=== PATIENT | male | born 1985 | race African-American/Black ===

== ENCOUNTER 2024-07-26 21:08 | Inpatient (IN) | payer OTHER, SELFPAY ==
[2024-07-26] VITALS (21 sets, daily range): BP systolic 175–231; BP diastolic 97–166
[2024-07-26 18:53] LABS: Glucose - Point of Care 123 mg/dl (70-99)
--- NOTE | 2024-07-26 19:05 | ED.GENMED ---
History of Present Illness
General
Chief Complaint: Overdose Unintentional
Time Seen by Provider: 07/26/24 19:05
History of Present Illness
History of Present Illness:
TIME OF INITIAL ENCOUNTER: 7 PM
HPI: The patient was picked up on a warrant in [place] and then being transferred to jail. On initial intake, the patient was found to be nodding off. He had decreased respiratory rate of around 10 and was given 0.5 mg of Narcan intranasally.
He had been vomiting and vomited in the police car on his way here. Upon arrival, he admits to using heroin yesterday or possibly this morning (more than 8 hours ago). Of note throughout the stay in the Emergency Department, the patient's mental
status worsened.
EXAM:
GENERAL: The patient is frequently retching/vomiting, hypertensive, ill-appearing
HEENT: Dry oral mucosa
CARDIOVASCULAR: No murmurs, tachycardic heart rate, regular rhythm, No chest wall tenderness
PULMONARY: No respiratory distress, breath sounds are clear and equal
ABDOMEN: Soft with no peritoneal signs, no tenderness
NEUROLOGIC: Moves all extremities equally, the patient is able to protect his airway and moves appropriately to vomit
PSYCHIATRIC: The patient appears obtunded
EXTREMITIES: Nontender, no edema
SKIN: Patient is profusely diaphoretic
NUMBER AND COMPLEXITY OF PROBLEMS ADDRESSED AT THE ENCOUNTER
� Chronic conditions affecting care: Unknown
� Acute Exacerbation and/or Progression of Chronic Illness: This is an acute problem
� Differential Diagnosis includes: Opiate withdrawal, delirium, electrolyte, dysrhythmia, JULIAN, polysubstance use
AMOUNT AND/OR COMPLEXITY OF DATA TO BE REVIEWED AND ANALYZED
� I performed an independent evaluation of and my interpretation is:
EKG: Sinus 55, LVH; of note patient did go into ventricular bigeminy while in the Emergency Department
CT:
X-rays: Chest x-ray initially showed endotracheal tube the need to be advanced�P chest x-ray improved
Laboratory Studies: White count 12.1, hemoglobin normal, potassium 3.1, magnesium normal, troponin less than 0.012, LFTs unremarkable, alcohol undetected
Other:
� Review of other/old records: No old records available for review
� Clinical information was obtained by an independent historian: EMS and [facility]
� Prescriptions/Medications Considered but not given:
� Further testing considered but not performed:
RISK OF COMPLICATIONS AND/OR MORBIDITY OR MORTALITY OF PATIENT MANAGEMENT
� Social determinants of health affecting care: Currently in police custody
� Discussion with other providers: Hospitalist, Dr. Chinchilla for admission
� Escalation of care including admission/observation vs risk of discharge considered: Although there was initial concern of opiate overdose initially, I suspect symptoms are more related to opiate withdrawal. His COWS score is
20. He was given multiple meds for symptomatic control. Poor IV access. With some difficulty (due to patient compliance), I placed femoral vein line in the right groin.
ANY OTHER UPDATES:
The patient had several episodes of vomiting but did not appear to aspirated any time. He was maintained in an upright position and he was able to position himself when he did vomit.
Throughout the stay in the Emergency Department, the patient continued to vomit. He became more encephalopathic. Strongly suspect this is related to drug use/drug withdrawal. The patient was given multiple meds for elevated COWS of 20. Decision
made to intubate the patient to protect airway and to help control the agitation. Central line also placed.
Phy Exam
Physical Exam
Physical Exam:
See HPI
Course
Orders/Labs/Results
Orders:
Orders
07/26/24 Breakfast
NPO
Allow oral meds: Yes
Allow clear liquids: Sips of Clears
NPO with Ice Chips: Yes
Comment: Allow meds and sips if patient alert to swallow
07/26/24 19:03
Electrocardiogram (*1) Urgent
Reason for Study: Other
Other Reason for Exam: Potential overdose
EKG- Treatment ONCE
07/26/24 19:06
Complete Blood Count/With Diff Urgent
07/26/24 19:12
0.9% Sodium Chloride 1000 ml [Nss] 1,000 ml IV BOLUS
Ondansetron Injectable [Zofran] 4 mg IV NOW STA
07/26/24 19:15
Clonidine [Catapres] 0.1 mg PO NOW STA
07/26/24 19:30
Alcohol Urgent
Comprehensive Metabolic Panel Urgent
Magnesium Urgent
Triglycerides Urgent
Comment: ADDON
Troponin I Urgent
07/26/24 20:03
Buprenorphine HCl [Belbuca] 300 mcg BUCCAL NOW STA
Diphenhydramine [Benadryl] 25 mg IV NOW STA
Haloperidol Lactate [Haldol] 5 mg IV NOW STA
07/26/24 20:09
Drug Screen, Urine [Urine Drug Abuse Screen] Urgent
07/26/24 20:10
Prochlorperazine [Compazine] 10 mg IV NOW STA
07/26/24 20:28
Magnesium Sulfate 1 G/D5w [Magnesium Sulfate] 1 gm in 100 ml IV NOW
Trimethobenzamide [Tigan] 200 mg IM NOW STA
07/26/24 20:29
Admit/Transfer Patient As Directed
Co-Sign Provider:
Level of Care: Inpatient admission
Assign to:: ICU
Physician / Group: Htay
Diagnosis: Opioid Withdrawal
Reason for Hospitalization: IVFs, Withdrawal management
Expected length of stay greater than two midnights?: Yes
ELOS- Estimated Length of Stay in days: 3
I certify the patient meets the requirements for IP care: Yes
07/26/24 20:32
Potassium Chloride [KCl] 40 meq 0.9% Sodium Chloride 250 ml [Nss] 250 ml IV NOW
PRN Pain Medication Management As Directed
May give lesser potent ordered pain med per pt: Yes
preference::
Protocol:: Medication orders for pain may be administered in a
manner that supports deferring to patient preference
when the pt is:
- Requesting an ordered lesser potent pain medication.
Least to most potent pain medications are defined
as: acetaminophen < NSAID < tramadol < opioids
(morphine, oxycodone, hydromorphone).
- Requesting a lesser dose of the same medication IF
ORDERED.
- Requesting a less intrusive route of administration
if both routes are prescribed by the provider (PO <
IV).
07/26/24 20:38
Code Status As Directed
Resuscitation Status: Full Code
07/26/24 20:46
PICC Line As Directed
07/26/24 21:25
Restraints - Violent As Directed
Restraint Type-: Locked-4 point/4 rails
Apply From (date): 07/26/24
Apply from (time): 20:59
Remove (date): 07/27/24
Remove (time): 00:59
07/26/24 22:00
Clonidine [Xvjaaiaj-Xct-1] 0.1 mg TRANSDERM Q7D
07/26/24 22:13
0.9% Sodium Chloride 1000 ml [Nss] 1,000 ml IV 80 mls/hr
0.9% Sodium Chloride [Nss (Preservative Free)] See Protocol IV PRN PRN
HydrALAZINE [Apresoline] 10 mg IV Q4HPRN PRN
Ketorolac [Toradol] 10 mg IV Q6HPRN PRN
07/26/24 22:13
1:1 Observation - Suicide/ Violent Behavior As Directed
Electrocardiogram (*1) Routine
Reason for Study: QTc Monitoring
Comment: if not already done in ED
Case Management Consult ONCE
Case Management Consult: Other
Comment: opioid withdrawal
Fentanyl, Urine Urgent
Activity As Directed
Activity Level: Bedrest
Capnography/ETCO2 As Directed
Clinical Opioid Withdrawal Scale (COWS) Q4
Frequency:: now, Q4 hours x 24 hours, then PRN based on symptoms
I&O [Intake/ Output] As Directed
Frequency: q12h
Pneumatic Compression Sleeves As Directed
Type: Knee high
Vital Signs As Directed
Frequency: Per unit guidelines
DX Deep Vein Thrombosis Video Routine
07/27/24 06:00
ECG [Electrocardiogram (*1)] IN AM
Reason for Study: QTc Monitoring
Basic Metabolic Panel IN AM
Complete Blood Count/No Diff IN AM
Ayhdd-Yues-Lqwdbca IN AM
Magnesium IN AM
Abnormal Lab Results
07/26/24 07/26/24 07/26/24
18:52 19:06 19:30
WBC 12.1 H 10^3/uL
(4.8-10.8)
Absolute Neuts (auto) 9.2 H 10^3/uL
(1.4-6.5)
Absolute Monos (auto) 0.7 H 10^3/uL
(0.1-0.6)
Neutrophils % 76.7 H %
(42.2-75.2)
Lymphocytes % 16.8 L %
(20.5-51.1)
Sodium 146 H mmol/L
(135-145)
Potassium 3.1 L mmol/L
(3.5-5.1)
Glucose 128 H mg/dl
(70-99)
Alkaline Phosphatase 133 H U/L
(38-126)
Total Protein 8.4 H g/dl
(6.3-8.2)
POC Glucose 123 H mg/dl
(70-99)
07/26/24 19:06
07/26/24 19:30
Vital Signs
Initial and Last Documented VS:
Initial Vital Signs
Temp Pulse Resp Pulse Ox
36.2 C 68 15 100
07/26/24 18:53 07/26/24 18:53 07/26/24 18:53 07/26/24 18:53
Last Documented Vital Signs
Temp Pulse Resp BP Pulse Ox
36.2 C 163 43 191/105 96
07/26/24 18:53 07/26/24 21:34 07/26/24 21:34 07/26/24 21:34 07/26/24 21:34
Procedures
Intubations
Procedure completed by: Nh, Dr. Barton
Method of Intubation: glidescope
Tube size (cm): 8.0
Placement confirmed by: CXR and capnography
Breath sounds after intubation: equal
Intubation complications: no complications
Additional information:
The initial chest x-ray shows slightly high endotracheal tube�this was advanced and repeat imaging is improved
Central Line
Right Femoral:
Anesthesia: 1% Lidocaine
Central line lumen: triple
Number of attempts: 1
Central line complications: none
Sterile dressing applied?: Yes
*Critical Care Note
Total Time (30-74mins, 75-104mins- exclusive of procedures): 60min
comment:
Patient intermittently screaming, cannot sit still, frequent reassessments, frequent vomiting, multiple meds attempted, frequent reassessments, multiple conversations with hospitalist
ED Attending Note
-
Portions of this chart may have been created with voice recognition software.� Occasional wrong word or��sound alike� substitutions may have occurred due to the inherent limitations of voice recognition software.
Discharge Plan
Departure
Patient Disposition: Admit
Date of Disposition: 07/26/24
Time of Disposition: 20:10
Presentation/result/management discussed w/ accepting MD/DO: Hospitalist
Discharge Problem:
Opiate withdrawal
Interventions
Interventions:
*Risk Screen - Suicide Last Done: 07/26/24 20:27
*General Assessment Last Done: 07/26/24 20:27
*Neglect/Abuse Screening Last Done: 07/26/24 20:27
*ED COVID-19 Vaccine History Last Done: 07/26/24 20:27
ED- Cardiac Assessment Last Done: 07/26/24 19:47
ED- Neurological Assessment Last Done: 07/26/24 19:47
ED-Psychological Assessment Last Done: 07/26/24 19:47
ED- Pulmonary Assessment Last Done: 07/26/24 21:38
[2024-07-26 19:11] LABS: % Basophils 0.4 % (0-2); % Eosinophils 0.2 % (0-6); % Immature Granulocytes 0.3 % (0-0.5); % Lymphocytes 16.8 % (20.5-51.1); % Monocytes 5.6 % (1.7-9.3); % Neutrophils 76.7 % (42.2-75.2); Absolute Basophils 0.1 10^3/uL (0-0.2); Absolute Monocytes 0.7 10^3/uL (0.1-0.6); Absolute Neutrophils 9.2 10^3/uL (1.4-6.5); Hematocrit 41.1 % (39.0-52.0); Hemoglobin 13.9 g/dL (13.0-18.0); Mean Corp Hgb Conc. 33.8 g/dL (33.0-37.0); Mean Corpuscular Hgb 28.9 pg (27.0-31.0); Mean Corpuscular Volume 85.4 fL (80.0-94.0); Nucleated Red Blood Cells % 0 % (-); Platelet Count 349 10^3/uL (130-400); Red Blood Cell Count 4.81 10^6/uL (4.70-6.10); Red Cell Dist. Width 13.2 % (11.5-14.5); White Blood Cell Count 12.1 10^3/uL (4.8-10.8)
[2024-07-26] MEDS: ZOFRAN 4 MG IV (19:23)
[2024-07-26] MEDS: NSS 1000 IV ×2 (19:24→23:37)
[2024-07-26 19:53] LABS: ALT (SGPT) 31 U/L (0-50); AST (SGOT) 37 U/L (17-59); Albumin 4.4 g/dl (3.5-5.0); Alkaline Phosphatase 133 U/L (38-126); Blood Urea Nitrogen 11 mg/dl (9-20); Carbon Dioxide 30 mmol/L (22-30); Chloride 104 mmol/L (98-107); Glucose 128 mg/dl (70-99); Potassium 3.1 mmol/L (3.5-5.1); Sodium 146 mmol/L (135-145); Total Bilirubin 0.7 mg/dl (0.2-1.3); Total Protein 8.4 g/dl (6.3-8.2); eGFR > 60.00
[2024-07-26 20:01] LABS: Troponin I < 0.012 ng/ml
[2024-07-26] MEDS: BENADRYL 25 MG IV (20:13)
--- NOTE | 2024-07-26 20:13 | HPS.HSE ---
Family Physician
-
Family Physician: Facility [facility]
Chief Complaint
-
Opioid Overdose / Withdrawal
History of Present Illness
Patient is a 38 y/o male who presents with opioid withdrawal. Patient was being transferred from the telecom manager's office to [facility] when he began 'nodding off' Patient admitted to the guard he took heroin. EMS was called and upon
arrival EMS found his respiratory rate to 7. He was given Narcan by EMS with improvement in respirations and he was brought to the emergency department for evaluation. Upon my evaluation patient opens his eyes to name, but is non-verbal. He is
very restless and has had many uncontrollable episodes of vomiting per staff.
Medical History
Past Medical History
Past Medical History: Reports Other (Unknown)
Past Surgical History: Reports Other (Unknown)
Social History
Unable to obtain full social history at this time due to: Acuity
Family History
Family History: Unable to Obtain
Allergies / Home Medications
Allergies reflects when Allergies were last updated in [employer].
Home Medications with original date entered in [employer]
Allergy/Medication List:
Allergies
Allergy/AdvReac Type Severity Reaction Status Date / Time
No Allergy Information Allergy Unverified 07/26/24 19:02
Available
Home Medications
Unobtainable 07/26/24
Medications on admission are unable to be verified or confirmed at this time.
If medication reconciliation has not been performed, why?: Unresponsive
Review of Systems
-
Unable to obtain full review of systems at this time due to: Acuity
Physical Exam
Vital Signs
Vital Signs
Temp Pulse Resp BP Pulse Ox
97.1 F 72 24 194/114 100
07/26/24 18:53 07/26/24 20:00 07/26/24 19:30 07/26/24 20:00 07/26/24 20:00
Physical Exam
General: Other (Restless, Diaphoretic; Appears Acute Ill)
HEENT: NormoCephalic, Atraumatic and Other (Mucous membranes are dry)
Respiratory: Clear, Non Labored Respirations and Decreased Breath Sounds
Cardiac: S1/S2, Irregular Rhythm ([place]) and Bradycardia
GI: Soft and Non Tender
Rectal: Deferred by Provider
Musculoskeletal: No Clubbing, No Cyanosis and No Edema
Skin: Warm
Neuro: Other (Unable to participate in full neurologic evaluation; Patient is restless and appears to move four extremities appropriately)
Psych: Calm
Laboratory Results
-
07/26/24 19:06
07/26/24 19:30
Laboratory Results
Total Bilirubin 0.7 mg/dl (0.2-1.3) 07/26/24 19:30
AST 37 U/L (17-59) 07/26/24 19:30
ALT 31 U/L (0-50) 07/26/24 19:30
Alkaline Phosphatase 133 U/L (38-126) H 07/26/24 19:30
Troponin I < 0.012 ng/ml 07/26/24 19:30
Data Reviewed
-
Lab Data: Labs Reviewed by me
Impression/Plan
-
Acute / Severe Opioid Withdrawal with Autonomic Hyperarousal Symptoms
Severe Encephalopathy with Delirium
Ventricular Bigeminy
Hypokalemia
-Admit to ICU
-Plan for micro-induction opioid protocol
-ED to place central line
-Low threshold for intubation for airway protection
-Restraints for violent behavior
-Replace electrolytes
DVT proph: SCDs
Code Status: Full Code
--- NOTE | 2024-07-26 20:19 | W.PN.UPDATE ---
Addendum entered and electronically signed by Savage Chinchilla MD 07/26/24 21:49:
ADDENDUM: failed attempted chemical restraints to stabilize Delirium. Thus sedated and intubated to protect AW.
Case dw ER Attd and ICU NAVAL ARCHITECT .
Original Note:
Update Note
Progress Note Update
Vital Signs
Temp Pulse Resp BP Pulse Ox
97.1 F 72 24 194/114 100
07/26/24 18:53 07/26/24 20:00 07/26/24 19:30 07/26/24 20:00 07/26/24 20:00
Labs
07/26/24 07/26/24
19:06 19:30
WBC 12.1 H
Sodium 146 H
Potassium 3.1 L
Creatinine 0.8
eGFR > 60.00
Glucose 128 H
Alkaline Phosphatase 133 H
Troponin I < 0.012
Total Protein 8.4 H
PE
Limited exam due to encephalopathic
Gen: In delirium, lethargic, restless , not cooperative
HEENT: atraumatic head
Neck: supple
Lungs:symmetric AE
Cor: hypertensive
Abdomen: soft , benign
TABLE SETTER: symmetric movements of
MS: 4 points rstraint for violent behavior
Psych:
UDS pending
EKG
SINUS TACHYCARDIA WITH 2ND DEGREE A-V BLOCK WITH 2:1 A-V CONDUCTION
INCOMPLETE RIGHT BUNDLE BRANCH BLOCK
MODERATE VOLTAGE CRITERIA FOR LVH, MAY BE NORMAL VARIANT ( Sokolow-Parish ,
Juan Carlos product )
ABNORMAL QRS-T ANGLE, CONSIDER PRIMARY T WAVE ABNORMALITY
ABNORMAL ECG
NO PREVIOUS ECGS AVAILABLE
ASSESSMENT & PLAN
Pending Rx reconciliation
Severe fulminant acute opiates withdrawal syndrome ( repeated vomiting)
Autonomic hyperarousal ( diaphoresis, hypertensive ) due to opiates WDS
Severe encephalopathy with acute behavioral dysfunction due to delirium - thus unable to corporate with any PO Meds
Ventricular bigemini and 2 to 1 AVB
Severe Hypokalemia due to vomiting
Hypernatremia due to FWD and dehydration
Limited peripheral access except foot line due to IVDA
Hi risk for aspiration, thus hi risk for intubation to protect AW
Hi risk for Seizures
- IV Haldol 4mg , IV Tigan
- urgent Rt femoral line requested to ER attd
- IV NS 80/H
- IV Mg 1 gm followed by IV KCL 40 [place] once Rt femoral line acces is established
- Micro induction Opiates WD set for significant WDS
- PRN IV Ativan for agitation
- 4 point leather restraints for violent behavior
- to have low threshold for sedation and intubation
- IF failed attempted to control delirium to consider sedation and intubation
Consults: Wholesale Account Manager, [facility] [employer]
Case Hospitalist dw ICU NAVAL ARCHITECT, ER attd
DVT Px: SCD
Full code
ICU
Total Critical Care Time__70___ minutes.
I was immediately available to the patient and staff. I personally examined, reviewed labs, diagnostic images/reports, interpretations, treatment plans, discussed patient care with other providers and family or caregivers (if patient is unable to
make decisions), entered orders as appropriate and documented the medical record.
[2024-07-26] MEDS: TIGAN 200 MG IM (20:46)
[2024-07-26] MEDS: MAGNESIUM SULFATE 100 IV (20:49)
[2024-07-26] MEDS: HALDOL 5 MG IV ×2 (20:54→21:12)
[2024-07-26] MEDS: COMPAZINE 10 MG IV (20:56)
[2024-07-26] MEDS: KCL 270 MEQ IV (21:10)
[2024-07-26] MEDS: ATIVAN 2 MG IV (21:11)
--- NOTE | 2024-07-26 21:30 | VATNOTE ---
IV ACCESS ESTABLISHED DOCUMENTED. PICC ORDER NOTED. PT IN ACTIVE OPIOID WITHDRAWAL. THRASHING AND UNCOOPERATIVE IN EFFORTS TO PROVIDE CARE. ACTIVE ON-GOING VOMITING. UNABLE TO INSERT PICC OR ML DUE TO THE PTS CURRENT CLINICAL SITUATION. ED MD TO
INSERT FEMORAL TLC.
[2024-07-26] MEDS: AMIDATE 20 MG IV (21:36)
[2024-07-26] MEDS: DIPRIVAN 100 IV (21:38)
[2024-07-26] MEDS: DIPRIVAN 50 MG IV (21:46)
[2024-07-26] MEDS: ANECTINE 100 MG IV (21:57)
[2024-07-26] MEDS: SUBLIMAZE 100 IV (22:00)
[2024-07-26] MEDS: SUBLIMAZE 75 MCG IV (22:03)
[2024-07-26 22:26] LABS: Triglycerides 62 mg/dl (10-149)
[2024-07-26 22:28] LABS: Alcohol None Detected
[2024-07-26] MEDS: SUBLIMAZE 100 MCG IV ×4 (22:46→23:09)
[2024-07-26] MEDS: VERSED 5 MG IV ×4 (22:47→23:13)
--- NOTE | 2024-07-26 23:00 | PTCARENOTE ---
Patient received from ED with security and wood gouger officers escorting patient. Patient agitated and uncooperative, unable to find commands. Pupils 2mm. 4 point locked restraints maintained. Thrashing in bed, attempting to sit up. Multiple doses
of sedation given to move patient from stretcher to the bed. Multiple staff members assisting with transfer. Sinus Tachycardia on monitor, with periods of ventricular bigeminy. Blood pressure as documented. No edema noted. #8 ETT at 23 at the
lip, vent settings of A/C 14 TV 500 FIO2 40% Peep 5, lungs coarse. patient vomiting large amounts. Abdomen soft, hypoactive bowel sounds. No open wounds noted. #20 g in right hand, #20 left foot flushed and patent. Right TLC with Propofol on
max dose, Fentanyl at 80 mcg/hr and K rider. Again multiple doses of sedation given in order to complete interventions. NG tube and guzman catheter placed after patient was more calm. Central line dressing changed. CHG bath given.
--- NOTE | 2024-07-26 23:28 | W.PN.UPDATE ---
Update Note
Progress Note Update
07/26/24
659- Patient attempting to sit up, moving severe agitated in 4 point locked restraints, vomiting around ETT and biting ETT. Vital signs: heart rate 140s and SBP 180s. Additional sedation ordered versed 5mg IV and fentanyl 100mcg. Patient currently
on propofol gtt maxed, and fentanyl gtt increased, additional boluses of versed and fentanyl given as well. Unasyn IV antibiotic ordered for possible aspiration pneumonia, patient has vomited multiple times despite antiemetics that have also been
administered IV. Additional sedation ordered: propofol, fentanyl, and Precedex gtts.
[2024-07-26] MEDS: APRESOLINE 10 MG IV (23:36)
[2024-07-26] MEDS: CATAPRES-TTS-1 0.1 MG TRANSDERM (23:36)
[2024-07-26] MEDS: ZYPREXA 10 MG IM (23:53)
[2024-07-26] MEDS: STERILE WATER FOR INJECTION 2.1 ML IM (23:54)
[2024-07-26] MEDS: PRECEDEX 100 IV (23:58)
[2024-07-27] VITALS (50 sets, daily range): BP systolic 103–188; BP diastolic 67–113; BMI 22.5
[2024-07-27] MEDS: DIPRIVAN 100 IV ×5 (00:03→14:43)
[2024-07-27] MEDS: UNASYN IV ×4 (00:49→17:26)
[2024-07-27] MEDS: CARDENE 200 IV ×4 (01:00→11:47)
--- NOTE | 2024-07-27 01:00 | PTCARENOTE ---
Patients blood pressure remains elevated, Cardene gtt added
[2024-07-27] MEDS: SUBLIMAZE 100 MCG IV ×5 (01:07→21:17)
[2024-07-27] MEDS: VERSED 5 MG IV (02:30)
[2024-07-27] MEDS: TRANDATE 10 MG IV ×2 (02:32→13:35)
--- NOTE | 2024-07-27 02:37 | PTCARENOTE ---
Patients heart rate in the 160s persistently, order received for labetalol.
[2024-07-27] MEDS: SUBLIMAZE 100 IV ×4 (03:13→19:44)
[2024-07-27 03:56] LABS: HCO3 29.9 mmol/L (21-28); O2 Saturation % 98.5 % (94-98); PCO2 44 mmHg (35-48); PO2 84 mmHg (83-108); pH 7.44 (7.35-7.45)
[2024-07-27 04:54] LABS: Hematocrit 39.9 % (39.0-52.0); Hemoglobin 13.3 g/dL (13.0-18.0); Mean Corp Hgb Conc. 33.3 g/dL (33.0-37.0); Mean Corpuscular Hgb 28.6 pg (27.0-31.0); Mean Corpuscular Volume 85.8 fL (80.0-94.0); Mean Platelet Volume 9.1 fL (7.4-10.4); Platelet Count 350 10^3/uL (130-400); Red Blood Cell Count 4.65 10^6/uL (4.70-6.10); Red Cell Dist. Width 13.4 % (11.5-14.5); White Blood Cell Count 21.2 10^3/uL (4.8-10.8)
[2024-07-27 05:07] LABS: APTT 26.2 Sec (23.4-35.0); INR 1.09; PT 14.6 Sec (11.4-14.6)
[2024-07-27 05:20] LABS: ALT (SGPT) 31 U/L (0-50); AST (SGOT) 36 U/L (17-59); Albumin 4.1 g/dl (3.5-5.0); Alkaline Phosphatase 115 U/L (38-126); Blood Urea Nitrogen 10 mg/dl (9-20); Carbon Dioxide 29 mmol/L (22-30); Chloride 108 mmol/L (98-107); Direct Bilirubin 0.1 mg/dl (0.0-0.4); Glucose 138 mg/dl (70-99); Lactic Acid 1.1 mmol/L (0.7-2.0); Magnesium 2.1 mg/dl (1.6-2.3); Potassium 3.6 mmol/L (3.5-5.1); Sodium 143 mmol/L (135-145); Total Bilirubin 0.6 mg/dl (0.2-1.3); Total Protein 7.5 g/dl (6.3-8.2); eGFR > 60.00
--- NOTE | 2024-07-27 05:22 | PTCARENOTE ---
Patient removed from 4 point locked restraints, placed in 4 point soft limb restraints . No other changes in assessment
[2024-07-27] MEDS: PRECEDEX 100 IV ×6 (05:28→23:26)
--- NOTE | 2024-07-27 07:54 | W.PN.HOSP.TC ---
Today's Communication/Plan
-
- UDS
- BCx
Assessment / Plan
Assessment / Plan
Assessment:
38yoM w/o significant pmh admitted for respiratory depression and somnolence. Pt admitted to railroad police officer that he used heroin within the previous 24h. Given 0.5 mg narcan intranasally en route to hospital. Pt intubated, became agitated overnight.
Pt on fentanyl gtt, propofol gtt, precedex gtt, and nicardipine gtt. Unasyn ordered for possible aspiration pneumonia.
Plan:
Acute opioid w/d
Opioid use disorder
Severe encephalopathy w delirium
- microinduction protocol
- UDS pending
- bcx x2 pending
Possible aspiration pneumonia
- CXR: No acute cardiopulmonary process
- unasyn
- aspiration precautions
Agitation
- restraints
- precedex ggt
Hypokalemia
- repleted
Ventricular bigeminy
- monitor
Vomiting
- prolonged QTc
- tigan
- PPI
Hypertension
- nicardipine gtt
Tachycardia
- lopressor as needed
Constipation ppx
- senokot, miralax
Diet: NPO
DVT ppx: lovenox, SCDs
Code status: FULL CODE
Anticipated Discharge: > 48 hours
Subjective/Interval History
-
Date of Service: July 27, 2024
Pt is a 38yoM w/o significant pmh admitted for respiratory depression and somnolence. Pt admitted to railroad police officer that he used heroin within the previous 24h. Given 0.5 mg narcan intranasally en route to hospital. Pt reportedly had uncontrollable
episodes of vomiting. Pt intubated in ED. Pt became agitated overnight, vomited around ET tube, bit ET tube. Pt tachycardic and hypertensive. Pt on fentanyl gtt, propofol gtt, precedex gtt, and nicardipine gtt. Unasyn ordered for possible aspiration
pneumonia.
Objective Data
-
Labs:
Laboratory Results
07/26/24 07/26/24 07/27/24
19:30 22:44 03:48
WBC
Hgb
Hct
Plt Count
PT
INR
APTT
HCO3 Cancelled 29.9 H
Sodium 146 H
Potassium 3.1 L
Chloride 104
Carbon Dioxide 30
BUN 11
Creatinine 0.8
Glucose 128 H
Calcium 10.0
Total Bilirubin 0.7
AST 37
ALT 31
Alkaline Phosphatase 133 H
07/27/24
04:37
WBC 21.2 H
Hgb 13.3
Hct 39.9
Plt Count 350
PT 14.6
INR 1.09
APTT 26.2
HCO3
Sodium 143
Potassium 3.6
Chloride 108 H
Carbon Dioxide 29
BUN 10
Creatinine 0.8
Glucose 138 H
Calcium 9.0
Total Bilirubin 0.6
AST 36
ALT 31
Alkaline Phosphatase 115
Vital Signs:
Vital Signs
Temp Pulse Resp BP Pulse Ox
99.0 F 139 16 154/84 99
07/27/24 07:38 07/27/24 05:30 07/27/24 05:30 07/27/24 05:30 07/27/24 05:30
I&O
07/26/24 07/27/24 07/28/24
06:59 06:59 06:59
Intake Total 1611.8 / 1796.1 184.3 / 184.3
Output Total 1725 / 1825 100 / 100
Balance -113.2 / -28.9 84.3 / 84.3
Review of Systems
-
Unable to obtain full review of systems at this time due to: Patient Intubation
Physical Exam
-
General: Well Developed, Well Nourished and Intubated
HEENT: Normocephalic and Atraumatic
Respiratory: Clear to Auscultation
Cardiac: Regular Rhythm and S1/S2
GI: Soft, Nontender, Nondistended and Normal Bowel Sounds
Musculoskeletal: No Clubbing, No Cyanosis and No Edema
Skin: Warm and Dry
Neuro: Sedated
[2024-07-27] MEDS: MIRALAX 17 GRAMS TUBE (08:04)
--- NOTE | 2024-07-27 08:09 | PTCARENOTE ---
assumed care of pt. approx 0700.
Remains in 4 point restraints, agitation remains despite sedation gtt.
Intubated, tolerating vent settings sp02 99-100. see flow sheets for settings/adjustments.
Sedation gtt as follows w. Diprivan/Dex, analgesic gtt Fentanyl.
On cardene gtt for BP control, Tachycardic remains in sustained 130s, Cardiology RADHA made aware awaiting orders.
--- NOTE | 2024-07-27 08:18 | CON.INTV ---
Consultation
Consultation Request
Date/Time Consultation Requested: 07/26/20242232
Date/Time Consultation Performed: 07/27/2024806
Requesting Provider: Elen Stevens PA-C
Performing Provider: Dr. Velazquez
Reason for Consultation: Heroin withdrawal
Medical History
-
Chief Complaint: Heroin overdose
History of Present Illness:
38-year-old male with past medical history at least significant for opioid use disorder (additional history unobtainable given patient's acute clinical status) who was transferred here from snf due to altered mental status and bradypnea after
patient admitted to using heroin. He had been arrested and was transferred to senior care from the customer advocate's office, and while at present he began 'nodding off' and became nauseous. He admitted to the guards that he took heroin. EMS called and when
they arrived his respiratory rate was 7. 0.5 mL of Narcan given by EMS with improved respiratory rate. In the ER he was opening his eyes to name but was otherwise nonverbal, restless with uncontrollable episodes of vomiting. He was given Ativan +
Haldol to try to calm down but he was non-directable and had to be intubated for airway protection. Central line inserted into femoral vein for IV access. Initial vitals in the ER showed he was afebrile to 97.1 �F, pulse rate 68, respiratory rate
15, BP 196/97 and saturating 100% on room air. Labs showed mild leukocytosis to 12.1, potassium 3.1, sodium 146, troponin negative at <0.012, alcohol level negative and POCT glucose 123. Initial CXR showed no acute disease of the chest. In the ER
patient was given 1 L NS 0.9%, and was admitted to the ICU with Sandblast Operator services consulted for additional management/recommendations. Once he was brought up to the ICU, he was started on fentanyl, Precedex and propofol. Sandblast Operator services
consulted for additional management/recommendations.
Patient seen and evaluated today at bedside. Police officers at bedside. Pt's VS currently show: Heart rate 127, saturating 100% and BP 142/83. Currently on AC/CMV at 14/500/5/40% with PIP 19 cmH2O, VTe 506 mL and breathing at 14 breaths/min.
Currently on Cardene drip at 10 mg/hr. Currently sedated on propofol at 50 mcg/kg/min, fentanyl at 200 mcg/hr and Precedex at 0.8 mcg/kg/hr. Agitated during nursing care. Nauseous with vomiting overnight but this morning his NGT shows biliary
output on low wall suction.
PMHx: Opioid use disorder; additional past medical history is unobtainable due to patient's acute clinical status
PSHx: Unobtainable due to patient's acute clinical status
Past Medical History
Past Medical History: Other (Above as per HPI)
Past Surgical History: Other (Above as per HPI)
Social History
Tobacco: Other (Unobtainable due to patient's acute clinical status)
Alcohol: Other (Unobtainable due to patient's acute clinical status)
Drug: Cocaine and Narcotics
Family History
Family History: Unable to Obtain (Due to patient's acute clinical status)
Allergies / Home Medications
Allergies
Allergy/AdvReac Type Severity Reaction Status Date / Time
No Allergy Information Allergy Unverified 07/26/24 19:02
Available
Home Medications
�Medication �Instructions �Recorded �Confirmed �Last Taken �Type
Unobtainable 07/26/24 07/26/24 Unknown History
Review of Systems
-
Unable to Obtain full review of systems at this time due to: Patient Intubation
Vitals / Labs / Diagnostic Testing
Vital Signs
Temp Pulse Resp BP Pulse Ox
99.0 F 129 24 138/86 100
07/27/24 07:38 07/27/24 10:00 07/27/24 10:00 07/27/24 10:00 07/27/24 10:00
Lab Data
07/27/24 04:37
07/27/24 04:37
Laboratory Results
07/26/24 07/27/24 07/27/24
22:44 03:48 04:37
PT 14.6
INR 1.09
APTT 26.2
pH Cancelled 7.44
pCO2 Cancelled 44
pO2 Cancelled 84
HCO3 Cancelled 29.9 H
O2 Delivery Level Cancelled
Diagnostic Testing:
Physical Exam
-
HEENT: Normocephalic and Anicteric
Cardiovascular: S1/S2, Peripheral Edema (negative) and Other (Tachycardic)
Respiratory: Wheeze (negative), Rhonchi (negative) and Other (Mechanical breath sounds heard bilaterally)
GI: Soft, Non Distended, Non Tender and Normal Bowel Sounds
Neurology: Tremors (negative) and Other (Sedated; pupils +1 mm bilaterally and sluggish)
Skin: Warm and Dry
General: Respiratory Distress (negative), Fever (negative), Chills (negative) and Sweats (positive)
Assessment
-
Assessment: 38-year-old male with past medical history at least significant for opioid use disorder (additional history unobtainable given patient's acute clinical status) who was transferred here from snf due to altered mental status and
bradypnea after patient admitted to using heroin. He had been arrested and was transferred to senior care from the customer advocate's office, and while at present he began 'nodding off' and became nauseous. He admitted to the guards that he took heroin. EMS
called and when they arrived his respiratory rate was 7. 0.5 mL of Narcan given by EMS with improved respiratory rate. In the ER he was opening his eyes to name but was otherwise nonverbal, restless with uncontrollable episodes of vomiting. He
was given Ativan + Haldol to try to calm down but he was non-directable and had to be intubated for airway protection. Central line inserted into femoral vein for IV access. Initial vitals in the ER showed he was afebrile to 97.1 �F, pulse rate
68, respiratory rate 15, BP 196/97 and saturating 100% on room air. Labs showed mild leukocytosis to 12.1, potassium 3.1, sodium 146, troponin negative at <0.012, alcohol level negative and POCT glucose 123. Initial CXR showed no acute disease of
the chest. In the ER patient was given 1 L NS 0.9%, and was admitted to the ICU with Sandblast Operator services consulted for additional management/recommendations. Once he was brought up to the ICU, he was started on fentanyl, Precedex and propofol.
Sandblast Operator services consulted for additional management/recommendations.
Impression:
#Opioid use disorder with initial overdose and acute encephalopathy with dyspnea requiring mechanical ventilation (intubated in the ER on 07/26/2024)
#Heroin withdrawal (fentanyl, xylazine + medetomidine) with nausea/vomiting, agitation, hypertension, tachycardia and sweating
#Hypertensive crisis requiring Cardene drip (hypertension likely due to withdrawal of adulterants in fentanyl)
#Leukocytosis
#Polysubstance abuse with UDS positive for amphetamines, methamphetamines, and cocaine
Plan:
- Patient initially presented to present with signs of opioid overdose, however now that he is here in the ICU he is exhibiting signs of fentanyl withdrawal in addition to withdrawal of xylazine + medetomidine
- Continue with fentanyl drip + Precedex drip
- Low threshold to start ketamine as he remains tachycardic and hypertensive despite being on fentanyl, Precedex and propofol drips
- Also on Cardene drip given his significant hypertension; wean down Cardene as tolerated with goal SBP 150mmHg
- Continue with clonidine, and prn Tigan + Toradol
- Start scheduled oxycodone as this will assist with reducing his withdrawal symptoms
- Given his nausea assess intractable vomiting, continue with pantoprazole 40 mg IV daily
- Antiemetics as needed; monitor QTc with goal <500ms
- Patient was intubated for airway protection
- Continue with mechanical ventilation with daily SAT/SBT if clinically appropriate
- Maintain plateau pressure <30 and titrate FiO2 + PEEP to keep SpO2 >90-94%
- Continue aspiration precautions; keep HOB >30-45�
- prn nebulized bronchodilators - not currently bronchospastic
- Oropharyngeal + deep ETT suctioning with subglottic as needed
- Daily CXR + blood gas
- Daily vent adjustments as needed based on blood gas and SaO2
- Low level of sedation with goal RASS as 0 to -2
- Keep pt restrained given risk of pt removing critical life saving interventions (i.e. ETT)
- Given his intractable vomiting with concern for aspiration, continue with Unasyn
- Follow-up blood cultures x2 collected today (07/27)
- Check a sputum culture from ETT
- CXR does not show any obvious consolidation although there is focal patchy opacities in the right upper lobe, likely due to aspiration pneumonia/pneumonitis
- Maintain MAP>65
- Replete electrolytes with K>4, Mg>2
- Maintain euglycemia with goal BG 140-180; check A1C
- Trend H/H and transfuse if needed to keep Hb>7g/dL; keep plt>20k, unless there is concern for bleeding then keep plt>50k
- Early nutrition � clamp NGT now and if patient has no nausea/vomiting or abdominal distention over the next 4-6 hours then will start tube feeds at that time
- DVT ppx: Start LMWH
Continue ICU level of care for this critically ill patient
Critical care statement: A total of 38 minutes of critical care time was provided for this patient today. This includes management of unstable vital signs, evaluation of the patient at bedside, reviewing the patient's pertinent medical records
including radiographs, microbiology, laboratory evaluations, and discussion with primary team, consultants, pharmacy, nutrition, physical therapy, case management, charge nurse, critical care nursing, and respiratory therapy.
[2024-07-27] MEDS: NSS 1000 IV ×2 (10:00→21:56)
--- NOTE | 2024-07-27 10:48 | PTCARENOTE ---
ROUND NOTES
Increase DEX gtt due to potential w.d of dex laced narcotics, elevated HR.
Clamp NG tube, see pt. tolerance, start PO meds potential Initiation of TF later today.
Leave intubated.
Will keep 3L Fem line, waiting for cultures to confirm no growth trending fevers/WBC prior to placing chcf PICC per subway car repairer.
--- NOTE | 2024-07-27 10:55 | CON.CAR ---
Addendum entered and electronically signed by Zaria Rocha DO 07/27/24 19:08:
I saw and examined the patient.
The Wind Turbine Performance Engineer's note was reviewed and I agree with the note.
Comment: Patient was seen and examined; case discussed with commercial fishing vessel operator. Patient was intubated and sedated in handcuffs; police officers present at the time of exam. Patient is a 38-year-old gentleman with a history of polysubstance abuse including
opioid use disorder admitting to using heroin arrested last night but admitted to [facility] after intractable vomiting and decreased mental/respiratory status. He was given Narcan by EMS with improved respiratory rate. In the ER he became
agitated requiring Ativan and Haldol ultimately intubated for airway protection. He is currently intubated and sedated. Initial vitals in the emergency room found blood pressure 196/97, pulse 68, 100% on room air. Leukocytosis 12.1, potassium
3.1, sodium 146, troponin negative at less than 0.012. Lab work this morning with white blood cell count 21.2, potassium 3.6, BUN/creatinine 10/0.8. Chest x-ray showed no acute disease of the chest. Sinus tachycardia and ventricular bigeminy
noted on admission. Initial EKG personally reviewed showed sinus bradycardia with incomplete right bundle branch block and LVH with prominent U waves. Initial QT interval 365 ms. Second EKG shows sinus tachycardia with T wave abnormality in the
inferior leads and long QT of 555 ms. Subsequent UDS positive for methamphetamines/amphetamines and cocaine. Alcohol not detected. He is currently on fentanyl, Precedex and propofol drips. Cardiology consulted for review of rhythm.
GEN: Intubated and sedated in 4 point restraints And handcuffs
HEENT: OG tube with coffee-ground emesis
LUNGS: Limited exam clear anterolaterally
CV: Regular, tachycardic. Positive S1-S2. 2 out of 6 systolic murmur
ABD:Nondistended. Positive bowel sound
EXT: No edema B/L. 2+ radial and PT pulses B/L
NEURO: Sedated
Plan:
Polysubstance abuse with heroin, cocaine, amphetamines and methamphetamines exhibiting signs of withdrawal intubated for airway protection
- Management per commercial fishing vessel operator
- Monitor QT interval on telemetry and serial EKGs
-Hypertensive urgency on admission now on a Cardene drip;
- Blood pressures better controlled, wean IV Cardene as able.
- Possible underlying hypertension
- Troponin undetectable
- Not prohibitive to use beta-renato such as labetalol.
Sinus tachycardia, reactive secondary to above
- Ventricular ectopy has improved but will continue to monitor on telemetry
- Keep K greater than 4, mag greater than 2
-Will monitor for now on telemetry; use of beta-renato such as labetalol not prohibitive
Systolic murmur�2D echocardiogram ordered to evaluate for LV gradients and valvular pathology
Intractable vomiting in the setting of withdrawal now with coffee-ground emesis following NG tube placement
-PPI
-Monitor H&H
Leukocytosis with probable aspiration
- Empiric antibiotics per commercial fishing vessel operator
Will follow with you
Original Note:
Consultation
Consultation Request
Date/Time Consultation Requested: 07/26/24 at 2234
Date/Time Consultation Performed: 07/27/24 at 0735
Requesting Provider: Dr. Clemente Charlton
Performing Provider: Dr. Rocha
Reason for Consultation: ventricular bigeminy, sinus tachycardia
Medical History
-
History of Present Illness:
Patient came to the ER last night with vomiting and decreased level of consciousness, patient admitted with suspected opiate withdrawal and cardiology is consulted for sinus tachycardia and ventricular bigeminy. All available records reviewed,
patient was arrested and was being brought to [facility] last night and vomited in the police vehicle and then during his intake at the facility he was falling asleep and was increasingly less responsive to questions. RR was low and EMS was call and
patient was given Narcan because there was concern for possible heroin overdose. EMS report says that when they arrived the patient was able to stand up and then sit on the stretcher. Pupils were pinpoint and reactive. Patient told EMS that he has a
h/o HTN. EMS report says track velasco on both arms. EMS brought patient to [facility] ER and a left foot IV site placed and then right femoral vein IV placed. Patient vomited again in the ER and ER reports increasing sign of encephalopathy so patient was
intubated in the ER for airway protection. Patient noted to have ventricular bigeminy on tele, unclear if he was symptomatic with this. Patient then noted to have increasing sinus tachycardia that responded to labetalol 10 mg IV x1 at about 0230
this morning. No toxicology screen.
PMH:
HTN
Past Medical History
Past Medical History: Other (unknown)
Past Surgical History: Other (unknown)
Social History
Tobacco: Other (unknown)
Alcohol: Other (unknown)
Drug: Other (reportedly using heroin, but unknown)
Family History
Family History: Unable to Obtain
Allergies / Home Medications
Allergy/AdvReac Type Severity Reaction Status Date / Time
No Allergy Information Allergy Unverified 07/26/24 19:02
Available
�Medication �Instructions �Recorded �Confirmed �Type
Unobtainable 07/26/24 07/26/24 History
Review of Systems
-
History Source: Transfer Record
All other systems: Negative unless noted
Physical Exam
Vital Signs
Temp Pulse Resp BP Pulse Ox
99.0 F 129 24 138/86 100
07/27/24 07:38 07/27/24 10:00 07/27/24 10:00 07/27/24 10:00 07/27/24 10:00
GEN: Intubated and sedated in 4 point restraints.
HEENT: MMM
LUNGS: Intubated and on the ventilator. Clear anterolaterally without wheeze
CV: Sinus tachycardia on tele. Rapid and reg, S1/S2, difficult to appreciate murmur due to rapid HR
ABD: ND
EXT: No edema B/L. 2+ radial and PT pulses B/L
NEURO: Sedated
SKIN: No rash
Lab Results
07/27/24 04:37
07/27/24 04:37
Troponin I < 0.012 ng/ml 07/26/24 19:30
Impression / Plan
-
PCP: Unknown
Card: Unknown
Impression:
Admitted with concern for withdrawal and change in mental status 07/26/24
Opioid withdrawal, h/o IVDA
toxicology screen pending, but patient told officers that he had used heroin more than 8 hours prior to admission
TME
Sinus tachycardia
Ventricular bigeminy
Vomiting prior to admission
Hypokalemia
h/o HTN
Echo 07/27/24: Study pending
Plan:
-Patient came to the ER last night with vomiting and decreased level of consciousness, patient admitted with suspected opiate withdrawal and cardiology is consulted for sinus tachycardia and ventricular bigeminy. All available records reviewed,
patient was arrested and was being brought to [facility] last night and vomited in the police vehicle and then during his intake at the facility he was falling asleep and was increasingly less responsive to questions. RR was low and EMS was call and
patient was given Narcan because there was concern for possible heroin overdose. EMS report says that when they arrived the patient was able to stand up and then sit on the stretcher. Pupils were pinpoint and reactive. Patient told EMS that he has a
h/o HTN. EMS report says track velasco on both arms. EMS brought patient to [facility] ER and a left foot IV site placed and then right femoral vein IV placed. Patient vomited again in the ER and ER reports increasing sign of encephalopathy so patient was
intubated in the ER for airway protection. Patient noted to have ventricular bigeminy on tele, unclear if he was symptomatic with this. Patient then noted to have increasing sinus tachycardia that responded to labetalol 10 mg IV x1 at about 0230
this morning. No toxicology screen.
-ECG reviewed by me sinus bradycardia and then sinus tachycardia with short LA.
-Tele reviewed by me and remains in sinus tachycardia. Earlier tele also shows ventricular bigeminy.
-Sinus tachycardia likely mediated by withdrawal and patient's young age in the setting of critical illness. Options for management include treating the underlying process or possibly adding labetalol 200 mg tube BID. Will defer labetalol for now
and focus on treating the underlying withdrawal.
-Check echo, ordered by me
-Repeat ECG, ordered by me
-[facility] commercial fishing vessel operator team
-For ventricular bigeminy, will continue to supplement potassium. Potassium was 3.1 on admission and is up to 3.6 now. Patient given K rider 40 meq in the ER last night. Will give additional KCl
-Magnesium 2.1 on my review of labs.
-Patient told paramedics that he has a h/o HTN, but was not taking meds prior to admission. Cardene gtt running at 10 plus clonidine 0.2 mg tube q 6 hours
--- NOTE | 2024-07-27 11:36 | CM ---
Unable to speak with patient. Intubated, Propofol, IV Fentanyl, IV/AB. Information obtained from 2 officers in room from [employer]. Patient was being transferred to [facility] when he began nodding in patrol car. Officers
notified [facility] officials and they refused admission to [facility] and recommended ER visit. Patient admitted to using heroin. Ultimately the discharge plan is to go to [facility] when medically stable.
[2024-07-27] MEDS: NSS (PRESERVATIVE FREE) 10 ML IV (11:44)
[2024-07-27] MEDS: PROTONIX IV 40 MG IV (11:46)
[2024-07-27 11:53] LABS: Amphetamines Positive (Negative); Barbiturates Negative (Negative); Benzodiazepines Positive (Negative); Buprenorphine Negative (Negative); Cocaine Positive (Negative); Marijuana Negative (Negative); Methadone Negative (Negative); Methamphetamines Positive (Negative); Opiates Negative (Negative); Phencyclidine Negative (Negative); Tricyclic Antidepressants Negative (Negative)
[2024-07-27] MEDS: ROXICODONE 20 MG TUBE ×2 (11:58→17:26)
[2024-07-27] MEDS: CATAPRES 0.2 MG TUBE (11:58)
[2024-07-27] MEDS: SENOKOT-S 1 TABLET TUBE ×2 (11:58→21:56)
[2024-07-27 12:07] LABS: Fentanyl, Urine Positive (Negative)
[2024-07-27] MEDS: KCL ELIXIR 40 MEQ TUBE (12:59)
[2024-07-27] MEDS: CATAPRES 0.1 MG TUBE ×2 (13:36→17:46)
--- NOTE | 2024-07-27 13:38 | PTCARENOTE ---
Addendum entered by Neel Hopkins RN 07/27/24 14:30:
Pt. ketamine responsive, BP/HR lowered, circular gang saw operator bedside, starting ketamine gtt. Bridge off other sedation as tolerated.
Original Note:
Tachycardia persisting, circular gang saw operator notified, ketamine ordered, x1 labetalol.
[2024-07-27] MEDS: KETAMINE 52.3 MG IV (13:54)
--- NOTE | 2024-07-27 14:34 | PTCARENOTE ---
Cardene titrated off 1430.
[2024-07-27] MEDS: KETALAR 100 MG IV ×2 (15:04→22:11)
--- NOTE | 2024-07-27 16:03 | PTCARENOTE ---
Ketamine uptitrated, Propofol titrated off. sedation now only ketamine/dex/fentanyl.
Cardene remains off, pt remains tachycardic 110-120 range.
No further change in assessment.
[2024-07-27] MEDS: LOVENOX 40 MG SC (17:27)
--- NOTE | 2024-07-27 22:45 | PTCARENOTE ---
Addendum entered by Sparkle Waterman RN 07/28/24 00:42:
Correction to previous note, 2 Ham Marker are in the room, not corrections officers.
Original Note:
Assumed care of pt at 2130. Received pt intubated, #8.0 ETT 23cm at lip, AC 14/500/40/5, sedated on Fentanyl at 150mcg/hr, Precedex at 1.5mcg/kg/min, and Ketamine at 0.4mg/kg/hr. See med titration flowsheets on worklist for additional details. Pt
currently in 4pt soft restraints + shackled to bed, 2 corrections officers in the room. Physical assessment as documented in nursing shift assessment flowsheet. SR 80s on monitor. COWS protocol ongoing, most recent score was 1 d/t HR.
[2024-07-28] VITALS (28 sets, daily range): BP systolic 109–217; BP diastolic 75–131; BMI 22.7
[2024-07-28] MEDS: ROXICODONE 20 MG TUBE ×4 (00:02→17:45)
[2024-07-28] MEDS: CATAPRES 0.1 MG TUBE ×2 (00:02→06:03)
[2024-07-28] MEDS: UNASYN IV ×4 (00:02→17:53)
[2024-07-28] MEDS: SUBLIMAZE 100 MCG IV ×2 (00:11→04:40)
--- NOTE | 2024-07-28 00:37 | PTCARENOTE ---
No changes in assessment. Pt on same doses of sedation, is able to easily awaken to voice, nods/shakes head appropriately. Pt has been cooperative with care.
[2024-07-28] MEDS: PRECEDEX 100 IV ×6 (03:00→21:32)
[2024-07-28] MEDS: SUBLIMAZE 100 IV ×2 (03:01→09:33)
[2024-07-28 03:59] LABS: Hematocrit 37.7 % (39.0-52.0); Hemoglobin 12.3 g/dL (13.0-18.0); Mean Corp Hgb Conc. 32.6 g/dL (33.0-37.0); Mean Corpuscular Hgb 28.8 pg (27.0-31.0); Mean Corpuscular Volume 88.3 fL (80.0-94.0); Mean Platelet Volume 8.9 fL (7.4-10.4); Platelet Count 283 10^3/uL (130-400); Red Blood Cell Count 4.27 10^6/uL (4.70-6.10); Red Cell Dist. Width 13.9 % (11.5-14.5); White Blood Cell Count 13.5 10^3/uL (4.8-10.8)
--- NOTE | 2024-07-28 04:17 | PTCARENOTE ---
No change in assessment. Remains on same drips at same rates. SR 70s on monitor. 2 seafood technology specialist in room.
[2024-07-28 04:30] LABS: HCO3 27.3 mmol/L (21-28); PCO2 44 mmHg (35-48); PO2 142 mmHg (83-108)
[2024-07-28] MEDS: KETALAR 100 MG IV ×2 (04:34→10:40)
[2024-07-28 05:05] LABS: ALT (SGPT) 23 U/L (0-50); AST (SGOT) 27 U/L (17-59); Albumin 3.2 g/dl (3.5-5.0); Alkaline Phosphatase 98 U/L (38-126); Blood Urea Nitrogen 12 mg/dl (9-20); Calcium 8.3 mg/dl (8.4-10.2); Carbon Dioxide 28 mmol/L (22-30); Chloride 113 mmol/L (98-107); Estimated Creatinine Clearance 116 ml/min; Glucose 83 mg/dl (70-99); Magnesium 2.3 mg/dl (1.6-2.3); Phosphorus 3.5 mg/dl (2.5-4.5); Potassium 3.9 mmol/L (3.5-5.1); Sodium 145 mmol/L (135-145); Total Bilirubin 0.9 mg/dl (0.2-1.3); Total Protein 5.8 g/dl (6.3-8.2); eGFR > 60.00
[2024-07-28] MEDS: PROTONIX IV 40 MG IV (07:56)
[2024-07-28] MEDS: MIRALAX 17 GRAMS TUBE (07:56)
[2024-07-28] MEDS: SENOKOT-S 1 TABLET TUBE (07:56)
[2024-07-28] MEDS: NSS (PRESERVATIVE FREE) 10 ML IV (07:56)
--- NOTE | 2024-07-28 07:59 | W.PN.HOSP.TC ---
Today's Communication/Plan
-
.
Assessment / Plan
Assessment / Plan
Assessment:
38yoM w/o significant pmh admitted for respiratory depression and somnolence. Pt admitted to traffic police officer that he used heroin within the previous 24h. Given 0.5 mg narcan intranasally en route to hospital. Pt intubated, became agitated overnight.
Pt started on fentanyl gtt, propofol gtt, precedex gtt, and nicardipine gtt. Unasyn ordered for possible aspiration pneumonia.
Plan:
Polysubstance use disorder
Severe encephalopathy w delirium
- microinduction protocol
- UDS: amphetamines, methamphetamines
- bcx x2: no growth @ 24h
Hypertensive urgency
- cardene drip
- undetectable troponin
Possible aspiration pneumonia
- CXR: No acute cardiopulmonary process
- unasyn
- aspiration precautions
Systolic murmur
- echo: LVEF 65-70%, no significant valvular abnormalities, no pericardial effusion
Agitation
- restraints
- precedex ggt
Hypokalemia
- repleted
Ventricular bigeminy
- monitor
Vomiting
- prolonged QTc
- tigan
- PPI
Hypertension
- nicardipine gtt
Tachycardia
- lopressor as needed
Constipation ppx
- senokot, miralax
Diet: tube feeding
DVT ppx: lovenox, SCDs
Code status: FULL CODE
Anticipated Discharge: > 48 hours
Subjective/Interval History
-
Date of Service: July 28, 2024
Pt more alert and cooperative w care.
Objective Data
-
Labs:
Laboratory Results
07/28/24 07/28/24
03:52 04:22
WBC 13.5 H
Hgb 12.3 L
Hct 37.7 L
Plt Count 283
HCO3 27.3
Sodium 145
Potassium 3.9
Chloride 113 H
Carbon Dioxide 28
BUN 12
Creatinine 0.9
Glucose 83
Calcium 8.3 L
Total Bilirubin 0.9
AST 27
ALT 23
Alkaline Phosphatase 98
Vital Signs:
Vital Signs
Temp Pulse Resp BP Pulse Ox
97.9 F 74 15 119/82 99
07/28/24 07:42 07/28/24 06:03 07/28/24 06:00 07/28/24 06:03 07/28/24 06:00
I&O
07/27/24 07/28/24 07/29/24
06:59 06:59 06:59
Intake Total 1611.8 / 1796.1 4407.0 / 4407.0
Output Total 1725 / 1825 2705 / 2705
Balance -113.2 / -28.9 1702.0 / 1702.0
Review of Systems
-
Unable to obtain full review of systems at this time due to: Patient Intubation
Physical Exam
-
General: Well Developed, Well Nourished and Intubated
HEENT: Normocephalic, Atraumatic and Anicteric
Respiratory: Clear to Auscultation
Cardiac: Regular Rhythm and S1/S2
GI: Soft, Nontender, Nondistended and Normal Bowel Sounds
Musculoskeletal: No Clubbing, No Cyanosis and No Edema
Skin: Warm
--- NOTE | 2024-07-28 08:27 | W.PN.INTV ---
Today's Communication / Plan
Recommendations
Continue ketamine, Precedex + fentanyl, with goal to reduce all drips and perform SBT later this morning and hopefully extubate
Okay to extubate while on ketamine + Precedex and then can continue weaning from there
Continue with Unasyn
Continue oxycodone, clonidine and other prn supportive medications for opioid withdrawal (Tigan, Tylenol + Toradol)
Aspiration precautions
Continue restraints
Goal BP <140/90
Continue ICU level of care for this critically ill patient
Assessment
-
Assessment: 38-year-old male with past medical history at least significant for opioid use disorder (additional history unobtainable given patient's acute clinical status) who was transferred here from halfway due to altered mental status and
bradypnea after patient admitted to using heroin. He had been arrested and was transferred to care home from the budget director's office, and while at present he began 'nodding off' and became nauseous. He admitted to the guards that he took heroin. EMS
called and when they arrived his respiratory rate was 7. 0.5 mL of Narcan given by EMS with improved respiratory rate. In the ER he was opening his eyes to name but was otherwise nonverbal, restless with uncontrollable episodes of vomiting. He
was given Ativan + Haldol to try to calm down but he was non-directable and had to be intubated for airway protection. Central line inserted into femoral vein for IV access. Initial vitals in the ER showed he was afebrile to 97.1 �F, pulse rate
68, respiratory rate 15, BP 196/97 and saturating 100% on room air. Labs showed mild leukocytosis to 12.1, potassium 3.1, sodium 146, troponin negative at <0.012, alcohol level negative and POCT glucose 123. Initial CXR showed no acute disease of
the chest. In the ER patient was given 1 L NS 0.9%, and was admitted to the ICU with Dining Room Attendant Cafeteria services consulted for additional management/recommendations. Once he was brought up to the ICU, he was started on fentanyl, Precedex and propofol.
Dining Room Attendant Cafeteria services consulted for additional management/recommendations.
Impression:
#Opioid use disorder with initial overdose and acute encephalopathy with dyspnea requiring mechanical ventilation (intubated in the ER on 07/26/2024)
#Heroin withdrawal (fentanyl, xylazine + medetomidine) with nausea/vomiting, agitation, hypertension, tachycardia and sweating
#Hypertensive crisis requiring Cardene drip (hypertension likely due to withdrawal of adulterants in fentanyl) - crisis now resolved
#Leukocytosis
#Polysubstance abuse with UDS positive for amphetamines, methamphetamines, and cocaine
Plan:
- Patient initially presented to care home with signs of opioid overdose, however now that he is here in the ICU he is exhibiting signs of fentanyl withdrawal in addition to withdrawal of xylazine + medetomidine
- Continue with fentanyl drip + Precedex drip
- Continue ketamine gtt; he is now off propofol drip
- Been off Cardene drip since yesterday; now that it has been >24 hours since admission, okay to lower BP to <140/90
- Continue with clonidine, and prn Tigan + Toradol
- Continue scheduled oxycodone as this will assist with reducing his withdrawal symptoms
- Nausea has resolved --> continue with pantoprazole 40 mg IV daily
- Antiemetics as needed; monitor QTc with goal <500ms
- Patient was intubated for airway protection
- Continue with mechanical ventilation with daily SAT/SBT if clinically appropriate - plan to reduce sedation today and extubate
- Maintain plateau pressure <30 and titrate FiO2 + PEEP to keep SpO2 >90-94%
- Continue aspiration precautions; keep HOB >30-45�
- prn nebulized bronchodilators - not currently bronchospastic
- Oropharyngeal + deep ETT suctioning with subglottic as needed
- Daily CXR + blood gas while intubated
- Daily vent adjustments as needed based on blood gas and SaO2
- Low level of sedation with goal RASS as 0 to -2
- Keep pt restrained given risk of pt removing critical life saving interventions (i.e. ETT)
- Given his intractable vomiting with concern for aspiration when initially admitted, continue with Unasyn x 5 days
- Follow-up blood cultures x2 collected today (07/27)
- Check a sputum culture from ETT
- CXR does not show any obvious consolidation although there is focal patchy opacities in the right upper lobe, and now with mild retrocardiac opacities per CXR from today (07/28), likely due to aspiration pneumonia/pneumonitis
- Maintain MAP>65
- Replete electrolytes with K>4, Mg>2
- Maintain euglycemia with goal BG 140-180; A1C: 6.5 on 07/28/2024
- Trend H/H and transfuse if needed to keep Hb>7g/dL; keep plt>20k, unless there is concern for bleeding then keep plt>50k
- Early nutrition � start TF
- DVT ppx: LMWH
Continue ICU level of care for this critically ill patient
Critical care statement: A total of 42 minutes of critical care time was provided for this patient today. This includes management of unstable vital signs, evaluation of the patient at bedside, reviewing the patient's pertinent medical records
including radiographs, microbiology, laboratory evaluations, and discussion with primary team, consultants, pharmacy, nutrition, physical therapy, case management, charge nurse, critical care nursing, and respiratory therapy.
Subjective Dataa
Subjective Data
Date of Service:
Date of Service: July 28, 2024
Chief Complaint: Dining Room Attendant Cafeteria Follow Up
Subjective:
Patient seen and evaluated this morning. Currently sedated with fentanyl drip at 150mcg/hr, Precedex at 1.5mcg/kg/hr, and ketamine at 0.4mcg/kg/min. Currently intubated on AC/CMV at 14/500/40%/5, with PIP 30 cmH2O, VTe 495mL and breathing at 14
breaths/min. No secretions from ETT. No nausea/vomiting.
Review of Systems
General: Unobtainable - Sedation
Objective Data
Data Reviewed
Vital Signs / I&O / Oxygen:
Vital Signs
Temp Pulse Resp BP Pulse Ox
97.9 F 74 15 119/82 99
07/28/24 07:42 07/28/24 06:03 07/28/24 06:00 07/28/24 06:03 07/28/24 08:06
Intake and Output
07/27/24 07/28/24 07/29/24
06:59 06:59 06:59
Intake Total 1611.8 / 1796.1 4407.0 / 4407.0
Output Total 1725 / 1825 2705 / 2705
Balance -113.2 / -28.9 1702.0 / 1702.0
SaO2 [A/C] 100
SaO2 99
Physical Exam
General: Respiratory Distress (negative), Chills (negative), Sweats (negative) and Other (AAM intubated/sedated)
HEENT: Normocephalic, Anicteric and Other (ETT in place)
Cardiovascular: S1-S2 and Peripheral Edema (negative)
Respiratory: Wheeze (negative), Crackles (negative), Rhonchi (negative), Non-Labored Respirations and ET Tube (Mechanical breath sounds heard bilaterally)
GI: Soft, Non Distended, Non Tender and Normal Bowel Sounds
Neurology: Tremors (negative) and Other (Sedated)
Skin: Warm, Dry, Cyanosis (negative) and Jaundice (negative)
Labs/Micro/Reports
Lab Data
07/28/24 03:52
07/28/24 03:52
Laboratory Results
07/28/24
04:22
pH 7.40
pCO2 44
pO2 142 H
HCO3 27.3
O2 Delivery Level
Microbiology
07/27/24 04:37 Nose MRSA Screen - Final
No Methicillin Resistant Staphylococcus aureus isolated.
07/27/24 00:42 Blood/Venous Blood Culture - Preliminary
No Growth in 24 hours- Final report to follow
[2024-07-28 08:47] LABS: Glycohemoglobin (HgbA1c) 6.5 % (4.0-5.6)
--- NOTE | 2024-07-28 09:00 | PTCARENOTE ---
pt drowsy , responds to verbal stimuli , on vent , nods head appropriately , NSR on monitor , BP 127/92 , on fentanyl , ketamine and Precedex drip as ordered
[2024-07-28] MEDS: NSS 1000 IV ×2 (10:22→22:59)
--- NOTE | 2024-07-28 10:53 | W.PN.CARDCBS ---
Today's Communication / Plan
-
Polysubstance abuse disorder/withdrawal management per hospitalist and machine stone polisher
Probable underlying hypertension with echocardiogram noting LVH in the setting of polysubstance abuse that includes cocaine
Eventual addition of oral antihypertensive therapy
Sinus tachycardia has improved
Will follow peripherally, recall if needed
Impression / Plan
-
PCP: Unknown
Card: Unknown
Impression:
Admitted with concern for withdrawal and change in mental status 07/26/24
Opioid withdrawal, h/o IVDA
toxicology screen pending, but patient told officers that he had used heroin more than 8 hours prior to admission
TME
Sinus tachycardia
Ventricular bigeminy
Vomiting prior to admission
Hypokalemia
h/o HTN
Echo 07/27/24: Study pending
Plan:
Polysubstance abuse with heroin, cocaine, amphetamines and methamphetamines exhibiting signs of withdrawal intubated for airway protection
- Management per machine stone polisher
- Monitor QT interval on telemetry and serial EKGs-QT interval stable today.
-Hypertensive urgency on admission, improved now off Cardene drip
- Blood pressures still elevated with possible underlying hypertension
- Troponin undetectable
- Not prohibitive to use beta-renato such as labetalol.
Sinus tachycardia, reactive secondary to above, improved
- Ventricular ectopy has improved but will continue to monitor on telemetry
- Keep K greater than 4, mag greater than 2
-Will monitor for now on telemetry; use of beta-renato such as labetalol not prohibitive
- 2D echocardiogram with normal biventricular size and systolic function with moderate LVH and a mid cavitary gradient likely related to hyperdynamic state. No significant valve abnormalities or pericardial effusion.
Discussed with hospitalist and machine stone polisher
Will follow along peripherally; recall if needed
Progress Note - Bioinformatics Technician
Subjective
Date of Service: July 28, 2024
Seen and examined. Patient remains on ventilator with sedation which is being weaned. Opens eyes to name. Overnight no events
Objective
Labs:
07/28/24 03:52
07/28/24 03:52
Labs
Hgb 12.3 g/dL (13.0-18.0) L 07/28/24 03:52
Hct 37.7 % (39.0-52.0) L 07/28/24 03:52
Plt Count 283 10^3/uL (130-400) 07/28/24 03:52
PT 14.6 Sec (11.4-14.6) 07/27/24 04:37
INR 1.09 07/27/24 04:37
APTT 26.2 Sec (23.4-35.0) 07/27/24 04:37
Sodium 145 mmol/L (135-145) 07/28/24 03:52
Potassium 3.9 mmol/L (3.5-5.1) 07/28/24 03:52
BUN 12 mg/dl (9-20) 07/28/24 03:52
Creatinine 0.9 mg/dL (0.7-1.3) 07/28/24 03:52
Glucose 83 mg/dl (70-99) 07/28/24 03:52
Troponins
07/26/24
19:30
Troponin I < 0.012
Vital Signs and I&O:
Vital Signs
Temp Pulse Resp BP Pulse Ox
97.9 F 74 15 119/82 99
07/28/24 07:42 07/28/24 06:03 07/28/24 06:00 07/28/24 06:03 07/28/24 08:06
Vital Signs
Temp Pulse Resp BP Pulse Ox
97.9 F 74 15 119/82 99
07/28/24 07:42 07/28/24 06:03 07/28/24 06:00 07/28/24 06:03 07/28/24 08:06
Intake & Output
07/26/24 07/27/24 07/28/24 07/29/24
06:59 06:59 06:59 06:59
Intake Total 1611.8 / 1796.1 4407.0 / 4407.0
Output Total 1725 / 1825 2705 / 2705
Balance -113.2 / -28.9 1702.0 / 1702.0
Physical Exam
Physical Exam
GEN: Intubated and sedated in 4 point restraints And handcuffs
HEENT: OG tube
LUNGS: Limited exam clear anterolaterally
CV: Regular, Positive S1-S2. 2 out of 6 systolic murmur
ABD:Nondistended. Positive bowel sound
EXT: No edema B/L. 2+ radial and PT pulses B/L
NEURO: Sedated
[2024-07-28] MEDS: CATAPRES 0.2 MG TUBE ×2 (13:04→17:45)
--- NOTE | 2024-07-28 14:25 | PTCARENOTE ---
pt now off of fentanyl gtt, he started a SBT trial and he is currently tolerating well
[2024-07-28 14:59] LABS: Urine Albumin 3+ (Neg - Trace); Urine Bilirubin Negative (Negative); Urine Character Clear (Clear); Urine Color Yellow; Urine Glucose Negative (Negative); Urine Ketone 3+ (Negative); Urine Leukocyte 1+ (Negative); Urine Nitrite Negative (Negative); Urine Occult Blood 2+ (Negative); Urine Specific Gravity 1.025 (<1.030); Urine Urobilinogen Negative (Neg - 1+)
--- NOTE | 2024-07-28 15:07 | CM ---
SBT trials. Discharge POC: [facility] system.
[2024-07-28 15:25] LABS: Urine Mucus Many
[2024-07-28 15:26] LABS: Urine Amorphous Seen
[2024-07-28 15:29] LABS: Urine Bacteria Few (Negative)
[2024-07-28 15:38] LABS: B.E. 0.6 mmol/L; PCO2 44 mmHg (35-48); PO2 153 mmHg (83-108); pH 7.38 (7.35-7.45)
--- NOTE | 2024-07-28 17:20 | PTCARENOTE ---
pt SBT and weaned from ventilator at 1630 he is awake and cooperative , passed swallowing eval , asking to eat, his ketamine is now at 0.2 mcg and Precedex at 1.0 mcg
[2024-07-28] MEDS: LOVENOX 40 MG SC (17:45)
--- NOTE | 2024-07-28 20:00 | PTCARENOTE ---
Received pt. at 1900. Pt. currently in bed. Drowsy, but arousable and oriented. Denies pain/discomfort. Afebrile. Heart rhythm sinus. Currently on room air. Lungs sound diminished. Regular diet, good appetite. Folet catheter discontinued by previous
RN. Pt. due to void. Skin as documented. Discussed plan of care with patient. Vital signs stable at this time.
[2024-07-28] MEDS: SENOKOT-S 1 TABLET PO (20:15)
[2024-07-28] MEDS: APRESOLINE 10 MG IV (21:11)
[2024-07-28] MEDS: CATAPRES 0.1 MG PO (22:58)
[2024-07-28] MEDS: ROXICODONE 20 MG PO (22:58)
[2024-07-28] MEDS: CATAPRES 0.2 MG PO (22:59)
[2024-07-29] VITALS (28 sets, daily range): BP systolic 148–204; BP diastolic 86–130; BMI 22.9
--- NOTE | 2024-07-29 | PTCARENOTE ---
Pt. experiencing hypertension and tachycardia. TOOL RENTAL TECHNICIAN notified. Extra dose of clonidine given along with scheduled medications. Blood pressure and heart rate improving. Vital signs stable at this time.
[2024-07-29] MEDS: UNASYN IV ×5 (00:01→23:04)
[2024-07-29] MEDS: PRECEDEX 100 IV ×2 (00:05→05:20)
[2024-07-29 03:44] LABS: Hematocrit 38.3 % (39.0-52.0); Mean Corp Hgb Conc. 33.9 g/dL (33.0-37.0); Mean Corpuscular Hgb 29.3 pg (27.0-31.0); Mean Corpuscular Volume 86.3 fL (80.0-94.0); Mean Platelet Volume 9.1 fL (7.4-10.4); Platelet Count 296 10^3/uL (130-400); Red Blood Cell Count 4.44 10^6/uL (4.70-6.10); Red Cell Dist. Width 13.3 % (11.5-14.5); White Blood Cell Count 11.1 10^3/uL (4.8-10.8)
--- NOTE | 2024-07-29 04:00 | PTCARENOTE ---
Pt. assessment remains unchanged. Ketamine gtt off and discontinued. Weaning precedex gtt as tolerated. AM labs drawn. Vital signs stable at this time.
[2024-07-29] MEDS: APRESOLINE 10 MG IV ×3 (04:06→13:16)
[2024-07-29 04:14] LABS: ALT (SGPT) 21 U/L (0-50); AST (SGOT) 29 U/L (17-59); Albumin 3.3 g/dl (3.5-5.0); Alkaline Phosphatase 103 U/L (38-126); Blood Urea Nitrogen 14 mg/dl (9-20); Calcium 8.5 mg/dl (8.4-10.2); Carbon Dioxide 25 mmol/L (22-30); Chloride 114 mmol/L (98-107); Estimated Creatinine Clearance 117 ml/min; Glucose 110 mg/dl (70-99); Magnesium 2.2 mg/dl (1.6-2.3); Phosphorus 2.1 mg/dl (2.5-4.5); Potassium 3.7 mmol/L (3.5-5.1); Sodium 143 mmol/L (135-145); Total Bilirubin 0.7 mg/dl (0.2-1.3); eGFR > 60.00
[2024-07-29] MEDS: CATAPRES 0.2 MG PO ×2 (05:05→12:01)
[2024-07-29] MEDS: ROXICODONE 20 MG PO ×4 (05:05→21:01)
[2024-07-29] MEDS: TRANDATE 10 MG IV (05:53)
[2024-07-29] MEDS: CATAPRES 0.1 MG PO (06:31)
[2024-07-29] MEDS: SENOKOT-S 1 TABLET PO ×2 (08:10→21:00)
[2024-07-29] MEDS: PROTONIX 40 MG PO (08:10)
[2024-07-29] MEDS: MIRALAX 17 GRAMS PO (08:11)
--- NOTE | 2024-07-29 08:16 | W.PN.INTV ---
Today's Communication / Plan
Recommendations
Start antihypertensives with goal BP <140/90
Wean down Precedex to off
Okay for regular diet
Continue aspiration precaution
PT/OT once off Precedex drip and remained stable without agitation
Continue scheduled oxycodone + clonidine
Off ketamine drip since overnight
Continue ICU level of care for this critically ill patient; once he is off Precedex drip and remains hemodynamically stable with SBP <140�160 with no signs of agitation, can downgrade out of ICU at that time.
Assessment
-
Assessment: 38-year-old male with past medical history at least significant for opioid use disorder (additional history unobtainable given patient's acute clinical status) who was transferred here from [facility] due to altered mental status and
bradypnea after patient admitted to using heroin. He had been arrested and was transferred to detention from the truck terminal manager's office, and while at present he began 'nodding off' and became nauseous. He admitted to the guards that he took heroin. EMS
called and when they arrived his respiratory rate was 7. 0.5 mL of Narcan given by EMS with improved respiratory rate. In the ER he was opening his eyes to name but was otherwise nonverbal, restless with uncontrollable episodes of vomiting. He
was given Ativan + Haldol to try to calm down but he was non-directable and had to be intubated for airway protection. Central line inserted into femoral vein for IV access. Initial vitals in the ER showed he was afebrile to 97.1 �F, pulse rate
68, respiratory rate 15, BP 196/97 and saturating 100% on room air. Labs showed mild leukocytosis to 12.1, potassium 3.1, sodium 146, troponin negative at <0.012, alcohol level negative and POCT glucose 123. Initial CXR showed no acute disease of
the chest. In the ER patient was given 1 L NS 0.9%, and was admitted to the ICU with Inspector Packager services consulted for additional management/recommendations. Once he was brought up to the ICU, he was started on fentanyl, Precedex and propofol.
Inspector Packager services consulted for additional management/recommendations.
Impression:
#Opioid use disorder with initial overdose and acute encephalopathy with dyspnea requiring mechanical ventilation (intubated in the ER on 07/26/2024; extubated 07/28/2024)
#Heroin withdrawal (fentanyl, xylazine + medetomidine) with nausea/vomiting, agitation, hypertension, tachycardia and sweating
#Hypertensive crisis requiring Cardene drip (hypertension likely due to withdrawal of adulterants in fentanyl) - crisis now resolved
#Leukocytosis � improving
#Polysubstance abuse with UDS positive for amphetamines, methamphetamines, and cocaine
Plan:
- Patient initially presented to detention with signs of opioid overdose, however now that he is here in the ICU he is exhibiting signs of fentanyl withdrawal in addition to withdrawal of xylazine + medetomidine
- Patient started on ketamine drip on 07/27/2024 which markedly improved his heart rate + BP ; he was able to be extubated on 07/28/2024
- As of this morning, he remains on Precedex drip; ketamine was weaned off overnight (07/28 - 07/29/2024)
- Been off Cardene drip since 07/27; goal BP <140/90 --> start antihypertensives with losartan and if continues to be hypertensive then start nifedipine
- Continue with clonidine, and prn Tigan + Toradol --> change clonidine from q6hr to QID and raise to 0.3mg
- Continue scheduled oxycodone as this will assist with reducing his withdrawal symptoms --> currently on 20 mg PO q6hr --> change to QID
- Nausea has resolved --> continue with pantoprazole 40 mg PO daily
- Antiemetics as needed; monitor QTc with goal <500ms
- Patient currently is on room air, breathing comfortably
- Keep SpO2 >90-94%
- Continue aspiration precautions; keep HOB >30-45�
- Given his intractable vomiting with concern for aspiration when initially admitted, continue with Unasyn x 5 days
- Follow-up blood cultures x2 collected 5/15
- Blood culture from 07/27 is growing gram-positive bacilli � follow-up species
- Follow up sputum culture from ETT (collected 07/28)
- CXR does not show any obvious consolidation although there is focal patchy opacities in the right upper lobe, and CXR on 07/28 showed mild retrocardiac opacities likely due to aspiration pneumonia/pneumonitis
- Maintain MAP>65
- Replete electrolytes with K>4, Mg>2
- Maintain euglycemia with goal BG 140-180; A1C: 6.5 on 07/28/2024
- Trend H/H and transfuse if needed to keep Hb>7g/dL; keep plt>20k, unless there is concern for bleeding then keep plt>50k
- Ok for regular diet
- DVT ppx: LMWH
Continue ICU level of care for this critically ill patient; once he is off Precedex drip and remains hemodynamically stable with SBP <140�160 with no signs of agitation, can downgrade out of ICU at that time.
Critical care statement: A total of 37 minutes of critical care time was provided for this patient today. This includes management of unstable vital signs, evaluation of the patient at bedside, reviewing the patient's pertinent medical records
including radiographs, microbiology, laboratory evaluations, and discussion with primary team, consultants, pharmacy, nutrition, physical therapy, case management, charge nurse, critical care nursing, and respiratory therapy.
Subjective Dataa
Subjective Data
Date of Service:
Date of Service: July 29, 2024
Chief Complaint: Inspector Packager Follow Up
Subjective:
Patient seen and evaluated this morning. BP 196/114, saturating 96% on room air and heart rate 98. He is resting in bed no acute distress. Offers no complaints, denying chest pain, SOB, OSORIO, abdominal pain, fevers or chills. He is hungry and
wants to eat.
Review of Systems
General: Other (Negative unless mentioned above)
Objective Data
Data Reviewed
Vital Signs / I&O / Oxygen:
Vital Signs
Temp Pulse Resp BP Pulse Ox
99.2 F 86 25 165/112 96
07/29/24 08:00 07/29/24 06:25 07/29/24 06:25 07/29/24 06:25 07/29/24 04:00
Intake and Output
07/28/24 07/29/24 07/30/24
06:59 06:59 06:59
Intake Total 4407.0 / 4545.7 3344.7 / 3344.7
Output Total 2705 / 2805 3000 / 3000 300 / 300
Balance 1702.0 / 1740.7 344.7 / 344.7 -300 / -300
SaO2 [CPAP/PSV] 100
SaO2 [A/C] 100
SaO2 96
Physical Exam
General: Respiratory Distress (negative), Comfortable, Chills (negative) and Sweats (negative)
HEENT: Normocephalic, Anicteric and Other (Supple neck)
Cardiovascular: S1-S2 and Peripheral Edema (negative)
Respiratory: Clear, Wheeze (negative), Crackles (negative), Rhonchi (negative) and Non-Labored Respirations
GI: Soft, Non Distended, Non Tender and Normal Bowel Sounds
Neurology: AO x 3 and Tremors (negative)
Skin: Warm, Dry, Cyanosis (negative) and Jaundice (negative)
Labs/Micro/Reports
Lab Data
07/29/24 03:27
07/29/24 03:27
Laboratory Results
07/28/24
15:23
pH 7.38
pCO2 44
pO2 153 H
HCO3 26.0
O2 Delivery Level
Microbiology
07/28/24 14:34 Sputum Gram Stain - Preliminary
07/27/24 00:42 Blood/Venous Blood Culture - Preliminary
Positive culture in progress
07/27/24 00:42 Blood/Venous Gram Stain - Preliminary
07/27/24 10:15 Blood/Venous Blood Culture - Preliminary
No Growth in 24 hours- Final report to follow
07/27/24 04:37 Nose MRSA Screen - Final
No Methicillin Resistant Staphylococcus aureus isolated.
[2024-07-29] MEDS: COZAAR 50 MG PO (09:23)
--- NOTE | 2024-07-29 09:57 | W.PN.HOSP.TC ---
Today's Communication/Plan
-
see note
Possible downgrade to telemetry if able to be weaned off of Precedex
Assessment / Plan
Assessment / Plan
38yoM w/o significant pmh admitted for respiratory depression and somnolence. Pt admitted to traffic police officer that he used heroin within the previous 24h. Given 0.5 mg narcan intranasally en route to hospital. Pt intubated, became agitated overnight.
Pt started on fentanyl gtt, propofol gtt, precedex gtt, and nicardipine gtt. Unasyn ordered for possible aspiration pneumonia.
1. Multiple substance abuse -urine drug screen is positive for coccaine/amphetamine/fentanyl/benzodiazepine/cocaine -out of which fentanyl/benzodiazepine likely positive from being provided in hospital before/after intubation. Confirmed with
patient and patient snorts cocaine/amphetamine, has been doing it for few years and never has used any IV drugs. Patient required to be on ketamine/Precedex/propofol/fentanyl initially, everything has been weaned off except Precedex at this point.
Patient mentation better , would likely be to be able to weaned off Precedex today
2. Vent dependent respiratory failure -initially intubated for airway protection, extubated this stage.
3. Aspiration pneumonia -patient have new leukocytosis although chest x-ray relatively clear cover with empiric antibiotic for possible aspiration pneumonitis. Blood culture has been negative. Will finish short course of 5 days of abx.
4. Sinus tachycardia/ventricular bigeminy -cardiology is involved in care and patient has significant sinus tachycardia. Echocardiogram showing preserved ejection fraction. Likely from meth and cocaine in the system. This is improved at this
stage. Avoid beta-renato
5. Nausea/vomiting -from substance use versus withdrawal related. NG tube was draining black/greenish gastric content. Maintain on empiric IV Protonix assuming there might be component of [place] tear. Abdomen examination benign and no
concern of any bowel obstructions. Monitor hemoglobin.
6. Type 2 diabetes mellitus -hemoglobin A1c borderline elevated at 6.5. Will add on metformin once on diet.
7. Hypertensive urgency -secondary to stimulant abuse. Adding losartan to regimen. Avoid beta-renato with cocaine use history.
Total critical care time 38 mins . Total critical care time documented does not include time spent on separately billed procedures or the services of residents, students, nurses or physician assistants. I personally saw and examined the patient. I
have reviewed all diagnostic interpretations and treatment plans as written. I was present for the solo portions of any procedures performed and the inclusive time noted in any critical care statement. Critical care time includes patient management
by me, time spent at the patients bedside, time to review lab and imaging results, discussing patient care, documentation in the medical record, and time spent with the family or caregiver.
Anticipated Discharge: 24 - 48 hours
Subjective/Interval History
-
Date of Service: July 29, 2024
Patient awake and alert, currently communicative
Blood pressure remains elevated
Heart rate better controlled
Remains afebrile
Denies abdominal pain/nausea/vomiting
Objective Data
-
Labs:
Laboratory Results
07/29/24
03:27
WBC 11.1 H
Hgb 13.0
Hct 38.3 L
Plt Count 296
Sodium 143
Potassium 3.7
Chloride 114 H
Carbon Dioxide 25
BUN 14
Creatinine 0.9
Glucose 110 H
Calcium 8.5
Total Bilirubin 0.7
AST 29
ALT 21
Alkaline Phosphatase 103
Vital Signs:
Vital Signs
Temp Pulse Resp BP Pulse Ox
99.2 F 86 25 165/112 96
07/29/24 08:00 07/29/24 06:25 07/29/24 06:25 07/29/24 06:25 07/29/24 04:00
I&O
07/28/24 07/29/24 07/30/24
06:59 06:59 06:59
Intake Total 4407.0 / 4545.7 3344.7 / 3344.7 327.7 / 327.7
Output Total 2705 / 2805 3000 / 3000 600 / 600
Balance 1702.0 / 1740.7 344.7 / 344.7 -272.3 / -272.3
Review of Systems
-
Respiratory: Reports No Symptoms
Cardiac: Reports No Symptoms
Abdomen/GI: Reports No Symptoms
Physical Exam
-
General: Intubated
HEENT: Negative Oxygen
Cardiac: Regular Rhythm, S1/S2 and Tachycardic
GI: Soft, Nontender and Nondistended
Musculoskeletal: No Edema
Skin: Warm
Neuro: Awake, Alert, Oriented and No Motor Deficits
--- NOTE | 2024-07-29 10:05 | PTCARENOTE ---
Rec'd pt at 0700. Pt sleeping but easily arousable. Follows commands, HELM, cooperative. Monitor SR, ST at times with PAC/PVC. SBP 170-180s/110's, am meds and PRN Apresoline given. 1000-Precedex gtts titrated off. 2 officers at bedside, left wrist
shackled to bed.
[2024-07-29] MEDS: ROXICODONE PO (13:04)
[2024-07-29] MEDS: KLOR-CON 20 MEQ PO (13:15)
[2024-07-29] MEDS: NEUTRA-PHOS POWDER PACKET 500 MG PO ×2 (13:15→18:07)
[2024-07-29] MEDS: PROCARDIA XL (EXTENDED RELEASE) 30 MG PO (13:16)
--- NOTE | 2024-07-29 13:54 | PTCARENOTE ---
Pt remains hypertensive SBP 180-190/100-110's. 1315-PO Procardia XL given and PRN Apresoline. CHG bath completed. Pt sleeping when undisturbed, easily awakens. Pt cooperative, left wrist shackled to bed, 2 officers at bedside.
[2024-07-29] MEDS: CARDENE 200 IV ×2 (16:23→21:27)
[2024-07-29] MEDS: TIGAN 200 MG IM (16:31)
--- NOTE | 2024-07-29 16:45 | PTCARENOTE ---
SBP remains 180-190's after medications given. Dr. Velazquez notified, Cardene gtts ordered and started at 5mg/hr. Pt with some emesis and spitting onto himself in bed. Admits to feeling nauseous, IM Jovita given. CHG bath and linens changed.
[2024-07-29] MEDS: CATAPRES 0.3 MG PO ×2 (18:07→21:01)
[2024-07-29] MEDS: LOVENOX 40 MG SC (18:08)
--- NOTE | 2024-07-29 20:00 | PTCARENOTE ---
Received pt. at 1900. Pt. currently in bed. Drowsy, but arousable and oriented. Denies pain/discomfort. Afebrile. Heart rhythm sinus. Hypertensive, Cardene gtt infusing. Titrated per order. Currently on room air. Lungs sound diminished. Regular
diet, good appetite. Voiding without issue. Skin as documented. Discussed plan of care with patient. Vital signs stable at this time.
[2024-07-30] VITALS (28 sets, daily range): BP systolic 97–168; BP diastolic 61–112; PULSE 122–142; O2SAT 98; BMI 22.7
--- NOTE | 2024-07-30 | PTCARENOTE ---
Pt. remains hypertensive. Cardene gtt infusing. Titrating per orders. Pt. denies any pain/discomfort. Stable at this time.
[2024-07-30] MEDS: CARDENE 200 IV ×3 (01:43→10:05)
[2024-07-30 03:38] LABS: Hematocrit 39.4 % (39.0-52.0); Hemoglobin 13.5 g/dL (13.0-18.0); Mean Corp Hgb Conc. 34.3 g/dL (33.0-37.0); Mean Corpuscular Hgb 29.1 pg (27.0-31.0); Mean Corpuscular Volume 84.9 fL (80.0-94.0); Platelet Count 334 10^3/uL (130-400); Red Blood Cell Count 4.64 10^6/uL (4.70-6.10); Red Cell Dist. Width 13.4 % (11.5-14.5); White Blood Cell Count 16.1 10^3/uL (4.8-10.8)
--- NOTE | 2024-07-30 03:55 | PTCARENOTE ---
Pt. assessment remains unchanged. AM labs drawn. Vital signs stable at this time.
[2024-07-30 04:10] LABS: ALT (SGPT) 26 U/L (0-50); AST (SGOT) 36 U/L (17-59); Albumin 4.1 g/dl (3.5-5.0); Alkaline Phosphatase 106 U/L (38-126); Blood Urea Nitrogen 8 mg/dl (9-20); Calcium 9.2 mg/dl (8.4-10.2); Carbon Dioxide 24 mmol/L (22-30); Chloride 106 mmol/L (98-107); Estimated Creatinine Clearance > 125 ml/min; Glucose 118 mg/dl (70-99); Phosphorus 3.5 mg/dl (2.5-4.5); Sodium 139 mmol/L (135-145); Total Bilirubin 0.7 mg/dl (0.2-1.3); Total Protein 7.4 g/dl (6.3-8.2); eGFR > 60.00
[2024-07-30] MEDS: UNASYN IV ×2 (05:07→12:36)
[2024-07-30] MEDS: KCL 100 IV (06:17)
[2024-07-30] MEDS: KCL ELIXIR 40 MEQ PO (06:17)
[2024-07-30] MEDS: PROTONIX 40 MG PO (07:56)
[2024-07-30] MEDS: CATAPRES 0.3 MG PO ×4 (07:56→21:26)
[2024-07-30] MEDS: PROCARDIA XL (EXTENDED RELEASE) 30 MG PO (07:56)
[2024-07-30] MEDS: SENOKOT-S 1 TABLET PO ×2 (07:56→19:26)
[2024-07-30] MEDS: ROXICODONE 20 MG PO ×4 (07:56→21:26)
[2024-07-30] MEDS: MIRALAX 17 GRAMS PO (07:56)
[2024-07-30] MEDS: COZAAR 50 MG PO (07:56)
--- NOTE | 2024-07-30 08:18 | W.PN.INTV ---
Today's Communication / Plan
Recommendations
Continue PO antihypertensives with goal BP <140/90
Off cardene gtt since this AM
Continue aspiration precautions
Sputum culture grew haemophilus influenza; he is s/p 4-day course of Unasyn
Trend WBC and monitor for fever
PT/OT
Continue scheduled oxycodone + clonidine with eventual weaning off oxycodone and tomorrow would start with micro dosing of buprenorphine
If patient remains off Cardene drip for >6-8 hours, then would downgrade out of ICU to telemetry. Once transferred out of the ICU then Traffic Officer/Pulmonary service will sign off at that time. Please call back with any questions or concerns and
thank you for allowing us to be involved in the care of this patient.
Assessment
-
Assessment: 38-year-old male with past medical history at least significant for opioid use disorder (additional history unobtainable given patient's acute clinical status) who [facility] due to altered mental status and
bradypnea after patient admitted to using heroin. He had been arrested and was transferred to half-way from the materials intern's office, and while at present he began 'nodding off' and became nauseous. He admitted to the guards that he took heroin. EMS
called and when they arrived his respiratory rate was 7. 0.5 mL of Narcan given by EMS with improved respiratory rate. In the ER he was opening his eyes to name but was otherwise nonverbal, restless with uncontrollable episodes of vomiting. He
was given Ativan + Haldol to try to calm down but he was non-directable and had to be intubated for airway protection. Central line inserted into femoral vein for IV access. Initial vitals in the ER showed he was afebrile to 97.1 �F, pulse rate
68, respiratory rate 15, BP 196/97 and saturating 100% on room air. Labs showed mild leukocytosis to 12.1, potassium 3.1, sodium 146, troponin negative at <0.012, alcohol level negative and POCT glucose 123. Initial CXR showed no acute disease of
the chest. In the ER patient was given 1 L NS 0.9%, and was admitted to the ICU with Traffic Officer services consulted for additional management/recommendations. Once he was brought up to the ICU, he was started on fentanyl, Precedex and propofol.
Traffic Officer services consulted for additional management/recommendations.
Impression:
#Opioid use disorder with initial overdose and acute encephalopathy with dyspnea requiring mechanical ventilation (intubated in the ER on 07/26/2024; extubated 07/28/2024)
#Heroin withdrawal (fentanyl, xylazine + medetomidine) with nausea/vomiting, agitation, hypertension, tachycardia and sweating
#Hypertensive crisis requiring Cardene drip (hypertension likely due to withdrawal of adulterants in fentanyl) - crisis had resolved then recurred on 07/29 requiring cardene gtt again
#Leukocytosis
#Polysubstance abuse with UDS positive for amphetamines, methamphetamines, and cocaine
Plan:
- Patient initially presented to half-way with signs of opioid overdose, however now that he is here in the ICU he is exhibiting signs of fentanyl withdrawal in addition to withdrawal of xylazine + medetomidine
- Patient started on ketamine drip on 07/27/2024 which markedly improved his heart rate + BP ; he was able to be extubated on 07/28/2024
- As of AM of 07/29, he remained on Precedex drip --> this was stopped on later in the day on 07/29; ketamine was weaned off overnight (07/28 - 07/29/2024)
- Been off Cardene drip since 07/27; goal BP <140/90 --> started antihypertensives with losartan + nifedipine
- Unfortunately he continued to be hypertensive with SBP in the 190s and Cardene drip was resumed on 07/29
- Labetalol added today (07/25)
- Goal is to wean off of Cardene today
- Continue with clonidine, and prn Tigan + Toradol
- Continue scheduled oxycodone as this will assist with reducing his withdrawal symptoms --> currently on 20 mg PO QID --> this should be weaned down, would start tomorrow with assistance of pharmacist
- Nausea has resolved --> continue with pantoprazole 40 mg PO daily
- Antiemetics as needed; monitor QTc with goal <500ms
- Patient currently is on room air, breathing comfortably
- Keep SpO2 >90-94%
- Continue aspiration precautions; keep HOB >30-45�
- Given his intractable vomiting with concern for aspiration when initially admitted, he is s/p Unasyn 07/27 - 07/30
- Follow-up blood cultures x2 collected 07/27 --> 1 bottle grew diphtheroids, suspected skin contaminant
- Follow up sputum culture from ETT (collected 07/28) --> grew haemophilus influenza; the unasyn he received should have covered this
- CXR initially did not show any obvious consolidation although there was focal patchy opacities in the right upper lobe; CXR on 07/28 showed mild retrocardiac opacities likely due to aspiration pneumonia/pneumonitis
- Repeat CXR tomorrow; if WBC continues to rise, especially if he spikes a fever, then would consider resuming antibiotics
- Maintain MAP>65
- Replete electrolytes with K>4, Mg>2
- Maintain euglycemia with goal BG 140-180; A1C: 6.5 on 07/28/2024
- Trend H/H and transfuse if needed to keep Hb>7g/dL; keep plt>20k, unless there is concern for bleeding then keep plt>50k
- Ok for regular diet
- DVT ppx: LMWH
If patient remains off Cardene drip for >6-8 hours, then would downgrade out of ICU to telemetry. Once transferred out of the ICU then Traffic Officer/Pulmonary service will sign off at that time. Please call back with any questions or concerns and
thank you for allowing us to be involved in the care of this patient.
Total time spent today was 58 minutes for this encounter. Time includes reviewing laboratory test/imaging results, reviewing pertinent medical records, obtaining and reviewing medical history, performing an appropriate exam, ordering medications,
tests and procedures. Time also includes documentation of this encounter, coordinating patient care and communicating with other healthcare professionals. Total time does not include separately billed tests performed on this date of service.
Subjective Dataa
Subjective Data
Date of Service:
Date of Service: July 30, 2024
Chief Complaint: Traffic Officer Follow Up
Subjective:
Patient seen and evaluated this morning. Has been off of Precedex since yesterday morning. Currently on Cardene drip, now at 5 mg/h, due to hypertension which was resistant to PO antihypertensives yesterday. Currently sleepy. Heart rate 66, BP
108/71 and saturating 95% on room air. He has no complaints.
Review of Systems
General: Other (Negative unless mentioned above)
Objective Data
Data Reviewed
Vital Signs / I&O / Oxygen:
Vital Signs
Temp Pulse Resp BP Pulse Ox
98.4 F 95 20 113/76 99
07/30/24 07:42 07/30/24 10:00 07/30/24 10:00 07/30/24 10:00 07/30/24 09:33
Intake and Output
07/29/24 07/30/24 07/31/24
06:59 06:59 06:59
Intake Total 3344.7 / 3344.7 2292.7 / 2367.7 490 / 490
Output Total 3000 / 3000 4200 / 4200 300 / 300
Balance 344.7 / 344.7 -1907.3 / -1832.3 190 / 190
SaO2 [CPAP/PSV] 100
SaO2 [A/C] 100
SaO2 99
Physical Exam
General: Respiratory Distress (negative), Comfortable, Chills (negative) and Sweats (negative)
HEENT: Normocephalic, Anicteric and Other (Supple neck)
Cardiovascular: S1-S2 and Peripheral Edema (negative)
Respiratory: Clear, Wheeze (negative), Crackles (negative), Rhonchi (negative) and Non-Labored Respirations
GI: Soft, Non Distended, Non Tender and Normal Bowel Sounds
Neurology: AO x 3 and Tremors (negative)
Skin: Warm, Dry, Cyanosis (negative) and Jaundice (negative)
Labs/Micro/Reports
Lab Data
07/30/24 06:00
07/30/24 03:20
Microbiology
07/28/24 14:34 Sputum Respiratory Culture - Preliminary
07/28/24 14:34 Sputum Gram Stain - Preliminary
07/27/24 00:42 Blood/Venous Blood Culture - Preliminary
Diptheroids
07/27/24 00:42 Blood/Venous Gram Stain - Preliminary
07/28/24 14:34 Urine Urine Culture - Final
NO GROWTH
07/27/24 10:15 Blood/Venous Blood Culture - Preliminary
No Growth in 48 hours- Final report to follow
07/27/24 04:37 Nose MRSA Screen - Final
No Methicillin Resistant Staphylococcus aureus isolated.
[2024-07-30] MEDS: TRANDATE 100 MG PO ×2 (09:16→19:26)
--- NOTE | 2024-07-30 11:39 | PTCARENOTE ---
Rec'd pt at 0700. Pt drowsy, but arousable. Follows commands, HELM. Monitor ST, SBP 160's on Cardene gtts 10mg/hr. AM meds given, Labetalol added to med regime per MD. By 1040 Cardene gtts weaned off, SBP 110's. Pt stood at bedside this am with
PT/OT, 2 officers at bedside. Pt's left wrist reshackled to bed once PT/OT finished working with pt. Pt remained cooperative. Ate 100% breakfast, resting quietly at this time.
--- NOTE | 2024-07-30 12:40 | W.PN.HOSP.TC ---
Today's Communication/Plan
-
cardene being weaned off
start oral labetalol
downgrade if bp stable
possible d/c in 24 hrs if no further issues
Assessment / Plan
Assessment / Plan
38yoM w/o significant pmh admitted for respiratory depression and somnolence. Pt admitted to police sergeant that he used heroin within the previous 24h. Given 0.5 mg narcan intranasally en route to hospital. Pt intubated, became agitated overnight.
Pt started on fentanyl gtt, propofol gtt, precedex gtt, and nicardipine gtt. Unasyn ordered for possible aspiration pneumonia.
1. Multiple substance abuse -urine drug screen is positive for cocaine/amphetamine/fentanyl/benzodiazepine/cocaine -out of which fentanyl/benzodiazepine likely positive from being provided in hospital before/after intubation. Confirmed with
patient and patient snorts cocaine/amphetamine, has been doing it for few years and never has used any IV drugs. Patient required to be on ketamine/Precedex/propofol/fentanyl initially, everything has been weaned off.
2. Vent dependent respiratory failure -initially intubated for airway protection, extubated this stage. not on o2.
3. Aspiration pneumonia -patient have new leukocytosis although chest x-ray relatively clear cover with empiric antibiotic for possible aspiration pneumonitis. Blood culture has been negative. Discontinue further abx at this point.
4. Sinus tachycardia/ventricular bigeminy -cardiology is involved in care and patient has significant sinus tachycardia. Echocardiogram showing preserved ejection fraction. Likely from meth and cocaine in the system. Continues to remain
uncontrolled at times due to likely uncontrolled hypertension. Echocardiogram has shown left ventricular hypertrophy as well. Labetalol started today for simultaneous rate and blood pressure control.
5. Nausea/vomiting - from substance use versus withdrawal related. NG tube was draining black/greenish gastric content during earlier stay. Maintain on empiric IV Protonix assuming there might be component of Sulma-Loredo tear. Abdomen
examination benign and no concern of any bowel obstructions. Monitor hemoglobin.
6. Type 2 diabetes mellitus -hemoglobin A1c borderline elevated at 6.5. Will add on metformin once on diet.
7. Hypertensive urgency -secondary to stimulant abuse. Adding losartan to regimen. Patient remains significantly uncontrolled in the morning. Was required to be placed on Cardene drip yesterday evening by ICU doctor. Starting patient on
labetalol as patient needs simultaneous rate control as well. Will need to increase the dose as needed.
Anticipated Discharge: Within 24 hours
Subjective/Interval History
-
Date of Service: July 30, 2024
Patient remains somewhat disoriented no agitation reported
Significant hypertension and tachycardia in the morning
Patient asymptomatic
Objective Data
-
Labs:
Laboratory Results
07/30/24 07/30/24
03:20 06:00
WBC 16.1 H Cancelled
Hgb 13.5 Cancelled
Hct 39.4 Cancelled
Plt Count 334 Cancelled
Sodium 139
Potassium 3.0 L
Chloride 106
Carbon Dioxide 24
BUN 8 L
Creatinine 0.7
Glucose 118 H
Calcium 9.2
Total Bilirubin 0.7
AST 36
ALT 26
Alkaline Phosphatase 106
Vital Signs:
Vital Signs
Temp Pulse Resp BP Pulse Ox
98.4 F 105 15 122/79 99
07/30/24 11:00 07/30/24 12:00 07/30/24 12:00 07/30/24 12:00 07/30/24 09:33
I&O
07/29/24 07/30/24 07/31/24
06:59 06:59 06:59
Intake Total 3344.7 / 3344.7 2292.7 / 2367.7 610 / 610
Output Total 3000 / 3000 4200 / 4200 300 / 300
Balance 344.7 / 344.7 -1907.3 / -1832.3 310 / 310
Review of Systems
-
Respiratory: Reports No Symptoms
Cardiac: Reports No Symptoms
Abdomen/GI: Reports No Symptoms
Physical Exam
-
HEENT: Negative Oxygen
Cardiac: Regular Rhythm, S1/S2 and Tachycardic
Musculoskeletal: No Edema
Skin: Warm
Neuro: Awake, Alert, Oriented and No Motor Deficits
--- NOTE | 2024-07-30 15:40 | PTCARENOTE ---
SBP 110's-130's, remains off Cardene gtts. No changes in assessment.
[2024-07-30] MEDS: LOVENOX 40 MG SC (17:31)
--- NOTE | 2024-07-30 20:19 | PTCARENOTE ---
Received pt resting in bed, AAOx3. Flat affect. Cooperative with care. ST on tele, HR 100-110. BP 166/112 at 1900- scheduled labetolol given- repeat now 140/97. Will monitor. Remains off cardene gtt. No edema. + pulses. SCDs maintained. On RA. Lungs
CTA. + bowel sounds. Regular diet - good appetite. Voiding yellow urine in urinal. R femoral TLC all capped. Call torres in reach
[2024-07-31] VITALS (18 sets, daily range): BP systolic 139–176; BP diastolic 85–112; BMI 22.7
[2024-07-31] MEDS: APRESOLINE 10 MG IV ×2 (01:10→10:09)
--- NOTE | 2024-07-31 01:19 | PTCARENOTE ---
Diastolic BP continues to rise, now 110. SBPs 140s-150s. STRAINER TENDER notified. Hydralazine order changed for SBP >140 - administered. Will monitor. Pt. resting, without complaints.
[2024-07-31] MEDS: TRANDATE 10 MG IV (03:40)
--- NOTE | 2024-07-31 04:05 | PTCARENOTE ---
BP elevated again 160-170/100s. RUBBER GOODS ASSEMBLER notified. 10mg IV labetolol ordered and given. Repeat BP 142/89. AM labs drawn. Offered pt. to get washed up but pt refused at this time.
[2024-07-31 04:07] LABS: Hemoglobin 13.6 g/dL (13.0-18.0); Mean Corp Hgb Conc. 33.2 g/dL (33.0-37.0); Mean Corpuscular Hgb 28.3 pg (27.0-31.0); Mean Corpuscular Volume 85.4 fL (80.0-94.0); Mean Platelet Volume 8.8 fL (7.4-10.4); Platelet Count 348 10^3/uL (130-400); Red Cell Dist. Width 13.3 % (11.5-14.5); White Blood Cell Count 10.3 10^3/uL (4.8-10.8)
[2024-07-31 04:31] LABS: Blood Urea Nitrogen 13 mg/dl (9-20); Carbon Dioxide 24 mmol/L (22-30); Chloride 103 mmol/L (98-107); Estimated Creatinine Clearance 105 ml/min; Glucose 166 mg/dl (70-99); Potassium 3.5 mmol/L (3.5-5.1); Sodium 135 mmol/L (135-145); eGFR > 60.00
[2024-07-31] MEDS: CATAPRES 0.3 MG PO ×3 (06:37→17:38)
[2024-07-31] MEDS: TRANDATE 100 MG PO (06:37)
[2024-07-31] MEDS: SENOKOT-S 1 TABLET PO (06:38)
[2024-07-31] MEDS: PROTONIX 40 MG PO (06:38)
[2024-07-31] MEDS: COZAAR 50 MG PO (06:38)
[2024-07-31] MEDS: MIRALAX 17 GRAMS PO (06:38)
--- NOTE | 2024-07-31 06:41 | PTCARENOTE ---
BP 167/109. Verbal orders to give 0800 meds at this time
[2024-07-31] MEDS: PROCARDIA XL (EXTENDED RELEASE) 30 MG PO (06:42)
--- NOTE | 2024-07-31 07:09 | W.PN.HOSP.TC ---
Addendum entered and electronically signed by Glenda Figueroa MD 08/01/24 16:56:
Agree with addendum re: opiate use disorder with unintentional overdose most likely
Addendum entered and electronically signed by Alejandra Saavedra DO, Resident 08/01/24 16:17:
Assessment includes:
Unintentional opioid use disorder
Addendum entered and electronically signed by Glenda Figueroa MD 07/31/24 14:30:
I saw and evaluated the patient independently. I reviewed the resident�s note and agree with findings and plan as documented by Dr. Saavedra.
GENERAL: well developed, well nourished, male in no apparent distress
HEENT: NC/AT
HEART: regular rate and rhythm, +S1, +S2
LUNGS : clear to auscultation bilaterally
ABDOM: soft, nontender, nondistended, + bowel sounds
EXT: no cyanosis, clubbing, or edema
NEUROLOGIC: grossly intact
Multiple substance abuse--urine drug screen is positive for cocaine/amphetamine/fentanyl/benzodiazepine/cocaine--out of which fentanyl/benzodiazepine likely positive from being provided in hospital before/after intubation. It was confirmed with
patient that patient snorts cocaine/amphetamine, has been doing it for few years and never has used any IV drugs. Patient required to be on ketamine/Precedex/propofol/fentanyl initially, everything has been weaned off--
Hypertensive urgency--secondary to stimulant abuse--off cardene drip--current regimen is clonidine 0.3 QID, labetalol 100 BID, cozaar 50 daily, nifedipine 30 daily and IV hydralazine PRN --follow BP
Vent dependent respiratory failure--initially intubated for airway protection, extubated
Aspiration pneumonia -patient have new leukocytosis although chest x-ray relatively clear cover with empiric antibiotic for possible aspiration pneumonitis. Blood culture has been negative. Discontinue further abx at this point.
Sinus tachycardia/ventricular bigeminy--apprec cards-- Echocardiogram showing preserved ejection fraction-- sinus tach Likely from meth and cocaine in the system. Continues to remain uncontrolled at times due to likely uncontrolled hypertension.
Echocardiogram has shown left ventricular hypertrophy as well. Labetalol started today for simultaneous rate and blood pressure control.
Nausea/vomiting - from substance use versus withdrawal related. NG tube was draining black/greenish gastric content--no NGT now-- Maintain on empiric IV Protonix assuming there might be component of Sulma-Loredo tear--Abdomen examination benign
and no concern of any bowel obstructions-- Monitor hemoglobin.
Type 2 diabetes mellitus -hemoglobin A1c borderline elevated at 6.5. Will add on metformin
code status--full code
Original Note:
Today's Communication/Plan
-
- dc planning
- Cleared for incarceration
Assessment / Plan
Assessment / Plan
Assessment:
38yoM w/o significant pmh admitted for respiratory depression and somnolence. Pt admitted to staff antisubmarine officer that he used heroin within the previous 24h. Given 0.5 mg narcan intranasally en route to hospital. Pt intubated, became agitated overnight.
Pt started on fentanyl gtt, propofol gtt, precedex gtt, and nicardipine gtt. Unasyn ordered for possible aspiration pneumonia.
Plan:
Polysubstance use disorder
Severe encephalopathy w delirium
- UDS: amphetamines, methamphetamines, fentanyl, benzodiazepines. Fentanyl and benzodiazepines likely positive from induction for intubation
- bcx x2: no growth @ 24h
- medically cleared for incarceration
DM type 2
- HbA1c 6.5
- metformin
Vomiting
- prolonged QTc
- tigan
- PPI
Tachycardia
- lopressor as needed
Constipation ppx
- senokot, miralax
Diet: regular
DVT ppx: lovenox, SCDs
Code status: FULL CODE
Anticipated Discharge: Today
Subjective/Interval History
-
Date of Service: July 31, 2024
Pt hypertensive overnight 160-170/100s, given hydralazine and then labetalol. Pt reports feeling much better today.
Objective Data
-
Labs:
Laboratory Results
07/31/24
03:52
WBC 10.3
Hgb 13.6
Hct 41.0
Plt Count 348
Sodium 135
Potassium 3.5
Chloride 103
Carbon Dioxide 24
BUN 13
Creatinine 1.0
Glucose 166 H
Calcium 9.0
Vital Signs:
Vital Signs
Temp Pulse Resp BP Pulse Ox
98.5 F 85 14 162/109 96
07/31/24 03:27 07/31/24 07:00 07/31/24 07:00 07/31/24 07:00 07/31/24 06:00
I&O
07/30/24 07/31/24 08/01/24
06:59 06:59 06:59
Intake Total 2292.7 / 2367.7 2530 / 2530
Output Total 4200 / 4200 1750 / 1750
Balance -1907.3 / -1832.3 780 / 780
Review of Systems
-
History Source: Patient
Constitutional: Reports No Symptoms
Respiratory: Reports Other (congestion)
Cardiac: Reports No Symptoms
Abdomen/GI: Reports No Symptoms
Genitourinary: Reports No Symptoms
Musculoskeletal: Reports No Symptoms
Neuro: Reports No Symptoms
Physical Exam
-
General: Well Developed and Well Nourished
HEENT: Normocephalic, Atraumatic and Moist Mucous Membranes
Respiratory: Clear to Auscultation and Non Labored Respirations
Cardiac: Regular Rhythm and S1/S2
GI: Soft, Nontender, Nondistended and Normal Bowel Sounds
Musculoskeletal: No Clubbing, No Cyanosis and No Edema
Skin: Warm and Dry
Neuro: Awake, Alert and Oriented
Psych: Calm
[2024-07-31] MEDS: ROXICODONE 20 MG PO ×2 (08:01→12:08)
[2024-07-31] MEDS: GLUCOPHAGE 500 MG PO ×2 (08:02→16:47)
--- NOTE | 2024-07-31 10:15 | PTCARENOTE ---
dose hydralazine administered per MAY, VAT rn in to remove triple line
--- NOTE | 2024-07-31 12:00 | W.DCSUMMARY ---
Addendum entered and electronically signed by Glenda Figueroa MD 07/31/24 18:05:
Read, reviewed, and agree. See same day progress note for additional details. Time spent coordinating care, DC planning, review of DC plan of care with resident, transition of care, review of records in EMR, med rec, consults, notes, d/w
consultants, nursing, family, and CM = 37 minutes
Initial plan was to discharge the patient back to the custodial today as he was cleared for incarceration. However, upon reviewing his blood pressures, he was found to be hypertensive. Decision was made then to hold the patient until tomorrow and
optimize his medical management. During that timeframe, custodial has released him and said a different court date and therefore he is free to leave. Patient's blood pressure is much improved at 140/88 and he is stable for discharge at this time.
Medication scripts have been sent to his pharmacy of choice.
Original Note:
Discharge Summary
Discharge Data
Date of Admission: 07/26/24
Date of Discharge: 07/31/24
-
Pending Results: No
Hospital Course
Discharging Physician : Dr. Alejandra Saavedra, Dr. Glenda Figueroa
Disposition : custodial
Primary care physician : [facility]
Principal Discharge diagnosis : Polysubstance use disorder, aspiration pneumonia
Chronic Discharge diagnosis : Diabetes Mellitus type 2
Hospital Course : 38yoM w/o significant pmh admitted for respiratory depression and somnolence. Pt admitted to police stenographer that he used heroin within the previous 24h. Given 0.5 mg narcan intranasally en route to hospital. Central line inserted
into femoral vein for IV access. Pt intubated, became agitated overnight. Pt on fentanyl gtt, propofol gtt, precedex gtt, and nicardipine gtt. Unasyn ordered for possible aspiration pneumonia. Murmur heard on exam, no valvular abnormalities on echo.
UDS positive for fentanyl, cocaine, benzodiazepines and methamphetamines. Weaned off of precedex and other drips. Extubated. Downgraded to tele. Microdosing protocol initiated. HbA1c 6.5, started on metformin. Hypertensive, started on losartan,
nifedipine, and labetalol. Hemodynamically stable, afebrile. Medically cleared for incarceration.
Important imaging findings :
07/26 CXR: No acute cardiopulmonary process.
07/28 CXR: Focal parenchymal opacity within the medial left lower lung, increasing from yesterday's radiographs, with main differential considerations of atelectasis and/or pneumonia.
Echo: LVEF 65-70%, no significant valvular abnormalities, no pericardial effusion
Procedure findings : n/a
Discharge Plan
-
Patient Disposition: Home (Routine Discharge)
Discharge Diagnosis/Procedures: Polysubstance use disorder, Diabetes mellitus type 2, aspiration pneumonia
Condition: Fair
Diet: Diabetic, Carb Controlled
Activity: No restrictions
Driving Restrictions: As prior to admission
Bathing Restrictions: None
Instructions: Aspiration pneumonia, Cocaine use disorder, Carb counting for adults with diabetes, Opioid use disorder, Diabetes and diet, Substance use disorder
Referrals:
[facility] [Family Provider] -
Prescriptions:
New
losartan 50 mg Tablet
50 mg PO DAILY 30 Days Qty: 30 0RF
metformin 500 mg Tablet
500 mg PO BID@0800,1700 30 Days Qty: 60 0RF
clonidine HCl 0.3 mg Tablet
0.3 mg PO QID 30 Days Qty: 120 0RF
nifedipine 30 mg Tablet Extended Release
30 mg PO DAILY 30 Days Qty: 30 0RF
labetalol 100 mg Tablet
100 mg PO BID 30 Days Qty: 60 0RF
Discharge Orders:
Discharge Patient (As Directed); Ordered 07/31/24
Ordered By: Alejandra Saavedra
Discharge Date and Time
Print Language: [place]
--- NOTE | 2024-07-31 12:22 | PTCARENOTE ---
Addendum entered by Venus Banks RN 07/31/24 13:00:
report called to 1 acute RN Sergei. patient released from [facility] custody, information regarding new court date given from [facility] to patient and placed in patient belongings bag. patient updated
Original Note:
vital signs as noted. hospitalist updated by david text, Catapres administered early. orders pending.
--- NOTE | 2024-07-31 15:48 | CM ---
Addendum entered by Bernarda Rudd 07/31/24 17:59:
Patient with appointment for court date but no restrictions. Patient states he is homeless but does not want to go to [facility] and wants a lyft to the train station. Patient has no cell phone. CM requested Lyft and nursing to take patient to ed
entrance. Patient has belongings and declined referral to nursing home in [place]. Patient states he has friends to assist him. CM will continue to follow for discharge planning needs.
Plan;transportation to train station, patient to contact friends.
Original Note:
Patient seen at bedside with physicians and sherifs in ICU. Patient no longer with guards at this time. Per nursing patient has a court date at a later time. Patient now in I acute CM will review with patient what his discharge plan is.
[2024-07-31] MEDS: ZANAFLEX 2 MG PO (16:47)
[2024-07-31] MEDS: LOVENOX SC (17:46)
--- NOTE | 2024-07-31 19:38 | PTCARENOTE ---
Discharge order acknowledged. Instructions reviewed with patient. Discharge transportation arranged with case management per patient's request. IV site removed. Wheelchair escort to Lyft ride at hospital entrance.
--- NOTE | 2024-08-01 15:29 | PN.CDI ---
CDI
- -
CDI:
Physician Documentation Request
Admit Date: 07/26/24 21:08
Dear Doctor Keri,
Patient admitted with polysubstance use disorder.
ED note, 'Chief Complaint: Overdose Unintentional.'
07/28 Eeg Tech note, 'Opioid use disorder with initial overdose.'
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 Given 0.5 mg Narcan intranasally en route to hospital.'
Please provide in your note the likely diagnosis associated with the use of Narcan en route to hospital;
Unintentional opioid overdose
Opioid use disorder only
Other
Use of terms such as suspected, likely, concern for, or probable (associated with a specific diagnosis that is being evaluated, monitored, or treated as if it exists) are acceptable and can be coded in the inpatient setting, when documented at the
time of discharge.
Thank you,
Zelda PARKER,RN,CCDS
CDI Specialist
Available via tiger text
Please use your independent medical judgment in providing your response.
== END 2024-07-31 18:20 | disposition home or self-care (01) | DRG 917 ==
LOC: 1 ACUTE 21:08
PROVIDERS: Nurse Practitioner Family; Physician Assistant Medical; ADMITTING PHYSICIAN Internal Medicine; ATTENDING PHYSICIAN Internal Medicine; CONSULT PHYSICIAN Internal Medicine Critical Care Medicine; EMERGENCY PHYSICIAN Emergency Medicine; OTHER PHYSICIAN Internal Medicine Cardiovascular Disease
PROC: 5A1945Z Respiratory Ventilation, 24-96 Consecutive Hours (ICD-10-PCS; 2024-07-26)
PROC: 0BH17EZ Insertion of Endotracheal Airway into Trachea, Via Natural or Artificial Opening (ICD-10-PCS; 2024-07-26)
DX: T40.1X1A Poisoning by heroin, accidental (unintentional), initial encounter (principal); G92.8 Other toxic encephalopathy; J69.0 Pneumonitis due to inhalation of food and vomit; K22.6 Gastro-esophageal laceration-hemorrhage syndrome; J96.90 Respiratory failure, unspecified, unspecified whether with hypoxia or hypercapnia; F11.23 Opioid dependence with withdrawal; Z59.00 Homelessness unspecified; E87.0 Hyperosmolality and hypernatremia; R00.8 Other abnormalities of heart beat; E87.6 Hypokalemia; Z78.1 Physical restraint status; E11.9 Type 2 diabetes mellitus without complications; R45.6 Violent behavior; I10 Essential (primary) hypertension; E86.0 Dehydration; F14.10 Cocaine abuse, uncomplicated; F15.10 Other stimulant abuse, uncomplicated; I45.10 Unspecified right bundle-branch block; R00.1 Bradycardia, unspecified; I16.0 Hypertensive urgency; R00.0 Tachycardia, unspecified; I49.3 Ventricular premature depolarization; R01.1 Cardiac murmur, unspecified
CPT/HCPCS: 31500; 36556; 36600; 71045; 80048; 80053; 80306; 80307; 81003; 81015; 82077; 82248; 82805; 82962; 83036; 83605; 83735; 84100; 84478; 84484; 85025; 85027; 85610; 85730; 87040; 87070; 87077; 87086; 87147; 87185; 87205; 93005; 93306; 94002; 94003; 96361; 96374; 96375; 97163; 97167; 99291; J2358